=== PATIENT | male | born 1945 | race Caucasian/White ===

== ENCOUNTER 2021-08-30 08:04 | Outpatient (REF) | payer MEDICARE, SELFPAY ==
--- NOTE | ~2021-08-30 | XR_ITS ---
EXAMINATION: XR SHOULDER, LEFT CLINICAL INFORMATION: Left shoulder pain COMPARISON: None TECHNIQUE: AP external rotation, Grashey, scapular Y, and axillary views of the left shoulder. FINDINGS: The bones and soft tissues are normal. No fracture. Glenohumeral and acromioclavicular alignment is anatomic with normal joint space. No abnormal soft tissue calcifications. XR/XR shoulder LT min 2V IMPRESSION: Normal left shoulder.
[2021-08-30 08:21] LABS: MANUAL DIFF FLAG NO
[2021-08-30 09:00] LABS: Basophils Absolute Auto 0.1 X10*3/uL (0.0-0.2); Basophils Percent Auto 0.8 % (0-2); Eosinophils Absolute Auto 0.2 X10*3/uL (0.0-0.4); Eosinophils Percent Auto 2.7 % (0-4); Hemoglobin 14.5 g/dl (14.0-18.0); Imm Gran Abs Auto 0.04 X10*3/uL (0.00-0.03); Imm Gran Pct Auto 0.6 % (0.0-0.4); Lymphocytes Absolute Auto 1.4 X10*3/uL (1.2-4.9); Lymphocytes Percent Auto 21.5 % (20-40); Mean Corpuscular HGB Conc 33.7 g/dl (31.0-36.0); Mean Corpuscular Hemoglobin 30.5 pg (27.0-33.0); Mean Corpuscular Volume 90.3 fL (80-98); Mean Platelet Volume 9.8 fL (9.4-12.4); Monocytes Absolute Auto 0.6 X10*3/uL (0.1-1.2); Monocytes Percent Auto 9.5 % (2-11); Neutrophils Absolute Auto 4.2 X10*3/uL (2.0-8.3); Neutrophils Percent Auto 64.9 % (45-73); Platelet Count 199 X10*3/uL (160-400); Red Blood Count 4.76 X10*6/uL (4.60-5.80); White Blood Count 6.4 X10*3/uL (4.8-10.8)
[2021-08-30 09:27] LABS: Alanine Aminotransferase 20 U/L (0-40); Albumin Level 4.2 g/dL (3.5-5.0); Alkaline Phosphatase 92 U/L (39-117); Anion Gap 12 (12-20); Aspartate Amino Transferase 19 U/L (5-37); Bilirubin Total 0.9 mg/dL (0.0-1.0); Blood Urea Nitrogen 17 mg/dL (9-16); Calcium 9.3 mg/dL (8.4-10.2); Carbon Dioxide 28 mmol/L (22-29); Chloride 106 mmol/L (96-108); Cholesterol 191 mg/dL; Estimated Glomerular Filt Rate > 60; Glucose Random 90 mg/dL (60-115); HDL Cholesterol 52 mg/dL; LDL Cholesterol Calculated 127 mg/dl; Potassium 4.6 mmol/L (3.3-5.1); Sodium 141 mmol/L (135-145); Triglycerides 62 mg/dL
[2021-08-30 09:48] LABS: Free T4 (Free Thyroxine) 0.94 ng/dL (0.71-1.85); Thyroid Stimulating Hormone 2.38 uIU/mL (0.32-4.0)
[2021-08-30 09:50] LABS: Folate 12.6 ng/mL (> or = 4.0); Vitamin B12 234 pg/mL (200-900)
[2021-09-06 11:40] LABS: Testosterone, Total 714 ng/dL (250-1100)
== END 2021-08-30 08:05 | disposition home or self-care (01) ==
LOC: HO.XRAY 08:04
PROVIDERS: PCP Internal Medicine; Visit Provider Internal Medicine
DX: Z12.5 Encounter for screening for malignant neoplasm of prostate (principal); M25.512 Pain in left shoulder; E66.9 Obesity, unspecified; E78.00 Pure hypercholesterolemia, unspecified; N52.9 Male erectile dysfunction, unspecified
CPT/HCPCS: 36415; 73030; 80053; 80061; 82607; 82746; 84153; 84403; 84439; 84443; 85025

== ENCOUNTER → 2021-10-15 08:45 | Outpatient (BNVA) | payer MEDICARE, SELFPAY | PROVIDERS: PCP Internal Medicine; Visit Provider Physician Assistant | DX: M75.102 Unspecified rotator cuff tear or rupture of left shoulder, not specified as traumatic (principal) | CPT/HCPCS: 20610; 99202; J1040 ==

== ENCOUNTER 2022-04-16 12:44 | Outpatient (REF) | payer MEDICARE, SELFPAY ==
--- NOTE | ~2022-04-16 | XR_ITS ---
EXAMINATION: XR KNEE, LEFT CLINICAL INFORMATION: Pain COMPARISON: None TECHNIQUE: Four views of the left knee. FINDINGS: Bone alignment is normal. No fracture or dislocation is seen. There is mild joint space narrowing at the medial femoral tibial joint. There are small osteophytes at the patellofemoral joint. There is soft tissue swelling overlying the patella. There is a small joint effusion. XR/XR knee LT 4V IMPRESSION: Mild degenerative changes. Soft tissue swelling overlying the patella and small joint effusion.
== END 2022-04-16 12:45 | disposition home or self-care (01) ==
LOC: HO.XRAY 12:44
PROVIDERS: PCP Internal Medicine; Visit Provider Nurse Practitioner Family
DX: M25.562 Pain in left knee (principal)
CPT/HCPCS: 73564

== ENCOUNTER → 2022-05-08 10:00 | Outpatient (BNVA) | payer MEDICARE, SELFPAY | PROVIDERS: PCP Internal Medicine; Visit Provider Physician Assistant | DX: M17.12 Unilateral primary osteoarthritis, left knee (principal) | CPT/HCPCS: 20610; 99202; J1040 ==

== ENCOUNTER 2023-04-24 09:43 | Outpatient (REF) | payer MEDICARE, SELFPAY ==
[2023-04-24 10:52] LABS: Influenza A PCR NEGATIVE (Negative); Influenza B PCR NEGATIVE (Negative); Resp Syncy Virus RNA Qual PCR NEGATIVE (Negative); SARS COV2 PCR INHOUSE NEGATIVE (Negative)
== END 2023-04-24 09:44 | disposition home or self-care (01) ==
LOC: HO.LAB 09:43
PROVIDERS: Visit Provider Nurse Practitioner Family
DX: R05.9 Cough, unspecified (principal); Z20.822 Contact with and (suspected) exposure to COVID-19
CPT/HCPCS: 0241U

== ENCOUNTER 2023-08-24 13:13 | Outpatient (AMB) | payer MEDICARE, SELFPAY ==
[2023-08-24 13:23] VITALS: BP 132/80; PULSE 64; O2SAT 98; BMI 37.5
--- NOTE | 2023-08-24 13:23 | MHC.PC.OV ---
Vital Signs 08/24/23 13:23 Height 5 ft 9 in Weight 254 lb BMI 37.5 BP 132/80 Blood Pressure Location Lt brachial Position Sitting Pulse 64 Pulse Source Pulse Oximeter Temp Source Skin Pulse Oximetry (%) 98 Oxygen Delivery Method Room Air Intake Visit Reasons: REBA Allergies No Known Allergies Allergy (Verified 04/24/23 09:35) Medication List - Last Reconciled 08/24/23 by Albin Dougherty MD acetaminophen 500 - 1,000 mg (1 - 2 x 500 mg) PO Q6H PRN albuterol sulfate 90 mcg/actuation (Ventolin HFA) 2 puffs inhalation Q4-6H PRN ascorbic acid (vitamin C) mg PO [CPAP ] fluticasone propionate 50 mcg/actuation (Flonase Allergy Relief) 2 sprays intranasal DAILY 30 days multivitamin 1 cap PO DAILY sildenafil 100 mg PO DAILY PRN Tobacco use date assessed: 04/24/23 Fall risk assessment: No Falls in past year Last assessed Fall Risk: 08/24/23 Dental Screening Dental Screen Date: 08/24/23 Did you have a dental visit in the last 12 months?: Yes Did you have a dental problem in the last 6 months where you did not have access to dental care?: No Was dental information given to patient?: Patient has dentist HPI REBA HPI Details 78-year-old obese male with a history of obstructive sleep apnea lumbar degenerative disc disease hypercholesterolemia coming in for follow-up. Patient was last seen in 2020. Patient is up-to-date with colonoscopy. Seen by the nurse practitioner in April 2023 for cough patient was given Z-Rakan with inhaler. Review of the notes followed up in July 2022 by the Orthopedics regarding the left knee osteoarthritis had an injection done MRI a requested and repeat aspiration advised was given steroids. Mandy is having problem with erection. has needed prism on eye glasses PFSH Medical History Allergic rhinitis Cervical radiculopathy Erectile dysfunction Hypercholesterolemia Lumbar degenerative disc disease Obesity (BMI 30-39.9) Obstructive sleep apnea Osteoarthritis Sacroiliitis, not elsewhere classified Urinary retention Surgical History H/O arthroscopy of shoulder Family History Father Cancer Stroke Mother No problems noted. Son No problems noted. Son No problems noted. 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 Chandra Parr, Eneida Jenkins, Devin Montgomery and colleagues, with an educational arpan from [employer]. Physical exam (Primary Care) Vital Signs: Last Vital Signs Pulse 64 08/24/23 13:23 BP 132/80 08/24/23 13:23 Pulse Ox 98 08/24/23 13:23 Oxygen Delivery Method Room Air 08/24/23 13:23 BMI result Body Mass Index 37.5 Tobacco/Smoking Status: Tobacco use Status Tobacco use date assessed 04/24/23 08/24/23 13:29 Patient Tobacco Use Status Former Tobacco user 08/24/23 13:29 Tobacco use type Cigar 08/24/23 13:29 e-Cigarette/Vaping Use Never Used 08/24/23 13:29 Thrive Assessment: Date of Thrive Assessment Date Thrive assessed 04/16/22 08/24/23 13:29 Const General: alert; No acute distress Eyes Conjunctivae: conjunctivae normal Resp Auscultation: clear to auscultation bilaterally Cardio Rate: regular rate Rhythm: regular rhythm GI Inspection: Yes normal to inspection Extrem General: Yes normal to inspection and No edema Office Procedures Flu Questionnaire Does the patient have a severe egg allergy?: No Does the patient have severe life threatening allergies?: No Does the patient have a fever or illness today?: No Has the patient ever had Guillain-Winona Syndrome?: No Has the patient ever had any past reaction to a flu shot?: No Immunizations flu vacc [id number] 6mos up(PF) 60 mcg(15 mcgx4)/0.5 mL IM syringe Performing Provider: Albin Dougherty MD [facility] [place] Administered by: DONNA Vera on 08/24/23 13:34 Dose Route Admin Location Dispensed Lot Number Expiration Date NDC Demographer 0.5 mL IM Left Deltoid 0.5 mL [id number] 05/15/24 [id number] [employer] VIS Given Date VIS Provided VIS Publication Date 08/24/23 Single Vaccine 21 Eligibility Eligibility Date Funding Source Not VFC Eligible 08/24/23 Private Assessment and Plan Assessment & Plan (1) Obesity (BMI 30-39.9): Code(s): E66.9 - Obesity, unspecified Plan: Diet and exercise (2) Obstructive sleep apnea: Comment: Severe Code(s): G47.33 - Obstructive sleep apnea (adult) (pediatric) Plan: Continue with the CPAP more than 4 hours a night and benefits from this (3) Lumbar degenerative disc disease: Code(s): M51.36 - Other intervertebral disc degeneration, lumbar region Plan: Keep active (4) Hypercholesterolemia: Code(s): E78.00 - Pure hypercholesterolemia, unspecified Plan: Avoid fried foods, chicken skin, eggs, butter margarine, pastries and meat. Be it pork or beef they have a lot of cholesterol last blood work was good. (5) Osteoarthritis of left knee: Code(s): M17.12 - Unilateral primary osteoarthritis, left knee Plan: Patient follows up with orthopedics (6) Urinary incontinence: Code(s): R32 - Unspecified urinary incontinence Orders: Orders Influenza [id number] Immunization Today Z23 - Encounter for immunization Testosterone, Total Today N52.9 - Male erectile dysfunction, unspecified Comprehensive Met. Panel Today E78.00 - Pure hypercholesterolemia, unspecified Free T4 (Free Thyroxine) Today E78.00 - Pure hypercholesterolemia, unspecified Vitamin B12 and Folate Today E78.00 - Pure hypercholesterolemia, unspecified Complete Blood Count Auto Diff Today E78.00 - Pure hypercholesterolemia, unspecified Thyroid Stimulating Hormone Today E78.00 - Pure hypercholesterolemia, unspecified Lipid Panel Today E78.00 - Pure hypercholesterolemia, unspecified US bladder Today R32 - Unspecified urinary incontinence Medications: Refilled sildenafil administer 30 minutes to 4 hours before activity 100 mg PO DAILY PRN 14 tabs 3RF sexual activity N52.9 - Male erectile dysfunction, unspecified Coding Level of Care Code Est Pt Level 4 (46253) Diagnoses Obesity (BMI 30-39.9) E66.9 Obstructive sleep apnea G47.33 Lumbar degenerative disc disease M51.36 Hypercholesterolemia E78.00 Osteoarthritis of left knee M17.12 Urinary incontinence R32
== END 2023-08-24 14:08 | disposition home or self-care (01) ==
PROVIDERS: PCP Internal Medicine; Visit Provider Internal Medicine
DX: E78.00 Pure hypercholesterolemia, unspecified (principal); G47.33 Obstructive sleep apnea (adult) (pediatric); Z68.37 Body mass index [BMI] 37.0-37.9, adult; E66.9 Obesity, unspecified; Z23 Encounter for immunization; M51.36 Other intervertebral disc degeneration, lumbar region; M17.12 Unilateral primary osteoarthritis, left knee; R32 Unspecified urinary incontinence
CPT/HCPCS: 90471; 90686; 99214

== ENCOUNTER 2023-08-27 10:45 | Outpatient (REF) | payer MEDICARE, SELFPAY ==
[2023-08-27 11:01] LABS: MANUAL DIFF FLAG NO
[2023-08-27 11:54] LABS: Basophils Percent Auto 0.5 % (0-2); Eosinophils Absolute Auto 0.2 X10*3/uL (0.0-0.4); Eosinophils Percent Auto 2.7 % (0-4); Hematocrit 45.4 % (42.0-52.0); Hemoglobin 15.3 g/dl (14.0-18.0); Imm Gran Abs Auto 0.03 X10*3/uL (0.00-0.03); Imm Gran Pct Auto 0.5 % (0.0-0.4); Lymphocytes Absolute Auto 1.2 X10*3/uL (1.2-4.9); Lymphocytes Percent Auto 22.5 % (20-40); Mean Corpuscular HGB Conc 33.7 g/dl (31.0-36.0); Mean Corpuscular Hemoglobin 30.4 pg (27.0-33.0); Mean Corpuscular Volume 90.3 fL (80.0-98.0); Mean Platelet Volume 9.7 fL (9.4-12.4); Monocytes Absolute Auto 0.5 X10*3/uL (0.1-1.2); Monocytes Percent Auto 9.6 % (2-11); Neutrophils Absolute Auto 3.5 x10*3/uL (2.0-8.3); Neutrophils Percent Auto 64.2 % (45-73); Platelet Count 211 X10*3/uL (160-400); Red Blood Count 5.03 X10*6/uL (4.60-5.80); Red Cell Distribution Width 12.9 % (11.0-16.0); White Blood Count 5.5 X10*3/uL (4.8-10.8)
[2023-08-27 13:15] LABS: Alanine Aminotransferase 17 U/L (0-40); Albumin Level 4.5 g/dL (3.5-5.0); Alkaline Phosphatase 86 U/L (39-117); Anion Gap 15 (12-20); Aspartate Amino Transferase 20 U/L (5-37); Bilirubin Total 0.7 mg/dL (0.0-1.0); Blood Urea Nitrogen 21 mg/dL (9-16); Calcium 9.7 mg/dL (8.4-10.2); Carbon Dioxide 25 mmol/L (22-29); Chloride 106 mmol/L (96-108); Cholesterol 221 mg/dL (<200); Estimated Glomerular Filt Rate > 60; Glucose Random 93 mg/dL (60-115); HDL Cholesterol 54 mg/dL (>40); LDL Cholesterol Calculated 148 mg/dL (<100); Potassium 4.4 mmol/L (3.3-5.1); Sodium 142 mmol/L (135-145); Total Protein 7.6 g/dL (6.5-8.0); Triglycerides 97 mg/dL (<150)
[2023-08-27 13:23] LABS: Free T4 (Free Thyroxine) 0.96 ng/dL (0.71-1.85); Thyroid Stimulating Hormone 2.01 uIU/mL (0.32-4.0)
[2023-08-27 13:33] LABS: Folate 12.2 ng/mL (> or = 4.0); Vitamin B12 364 pg/mL (200-900)
[2023-08-31 14:29] LABS: Testosterone, Total 783 ng/dL (250-1100)
== END 2023-08-27 10:46 | disposition home or self-care (01) ==
LOC: HO.LAB 10:45
PROVIDERS: PCP Internal Medicine; Visit Provider Internal Medicine
DX: E78.00 Pure hypercholesterolemia, unspecified (principal); N52.9 Male erectile dysfunction, unspecified
CPT/HCPCS: 36415; 80053; 80061; 82607; 82746; 84403; 84439; 84443; 85025

== ENCOUNTER 2023-09-16 15:32 | Outpatient (AMB) | payer MEDICARE, SELFPAY ==
[2023-09-16 15:32] VITALS: BP 160/70; PULSE 91; TEMP 36.6; O2SAT 95; BMI 37.9
--- NOTE | 2023-09-16 15:32 | AM.OFFWIN_ITS ---
Intake Vital Signs 09/16/23 15:32 Height 5 ft 9 in Weight 257 lb BMI 37.9 BP 160/70 H Blood Pressure Location Lt brachial Position Sitting Pulse 91 Pulse Source Pulse Oximeter Temp 97.8 F Temp Source Temporal Artery Scan Pulse Oximetry (%) 95 Oxygen Delivery Method Room Air Intake Visit Reasons: EP, rash in groin and odor Intake Note: pt is here for c/o rash on groin and has fluid coming from rash 2 weeks Patient Tobacco Use Status: Former Tobacco user Allergies No Known Allergies Allergy (Verified 09/16/23 15:33) Do you need a note to return to daycare/school/sports/work: Yes HPI HPI Comments History of Present Illness Details 78 yo m that presents for a rash in the groin. The rash has been present for several weeks. It weeps and hernandez occasionally. Denies fever or chills. [facility] Medical History Allergic rhinitis Cervical radiculopathy Erectile dysfunction Hypercholesterolemia Lumbar degenerative disc disease Obesity (BMI 30-39.9) Obstructive sleep apnea Osteoarthritis Sacroiliitis, not elsewhere classified Urinary retention Surgical History H/O arthroscopy of shoulder Family History Father Cancer Stroke Mother No problems noted. Son No problems noted. Son No problems noted. 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) Current occupational status: retired (retired after 08/30/21) Current occupation: rt handed Cognitive needs: No Hearing needs: Yes (hearing aides) Vision needs: Yes (glasses) Review of Systems Skin/Breast Reports rash Physical Exam Vital Signs: Last Vital Signs Temp 97.8 F 09/16/23 15:32 Pulse 91 09/16/23 15:32 BP 160/70 H 09/16/23 15:32 Pulse Ox 95 09/16/23 15:32 Oxygen Delivery Method Room Air 09/16/23 15:32 BMI result Body Mass Index 37.9 Const General: cooperative, healthy appearing, no acute distress and alert Orientation/consciousness: patient oriented x3 Limitations: no limitations HEENT Head: Yes normal to inspection Ears: hearing grossly normal bilaterally General nose exam: Normal external nose present Resp Effort & Inspection: normal respiratory effort and able to speak in complete sentences Cardio Rate: regular rate Skin Other: Rash in the folds of the groin region. mild erythema and moisture presents. Neuro General: patient oriented x3 Extrem General: Yes normal to inspection Assessment & Plan Assessment & Plan (1) Intertrigo: Code(s): L30.4 - Erythema intertrigo Plan: signs and symptoms consistent with intertrigo. Given absence of systemic signs and no hx of DM lost suspicion for other acute pathology such as Luz's. Recommend good hydrigiene, drying powders and will prescribe an antifungal Discharge instructions, follow up and treatment are discussed with patient in my usual fashion. Alternatives in treatment are also discussed. The patient will return for worsening symptoms or as needed. Advised that any labs/imaging ordered will be followed up on and contact made if further treatment needed. Counseled that patient's condition may require further evaluation and/or treatment. Symptoms of concern for worsening disorder discussed in detail in my customary manner. Patient does verbalize understanding of the plan, there are no apparent barriers to communication. The patient is given the opportunity to ask questions and have them answered to his/her satisfaction Medications: New ketoconazole 2% 1 appl topical BID 60 grams 0RF Coding Level of Care Code Est Pt Level 3 (64733) Diagnoses Intertrigo L30.4
== END 2023-09-16 15:56 | disposition home or self-care (01) ==
PROVIDERS: PCP Internal Medicine; Visit Provider Physician Assistant
DX: L30.4 Erythema intertrigo (principal)
CPT/HCPCS: 99213

== ENCOUNTER 2023-10-06 10:47 | Outpatient (REF) | payer MEDICARE, SELFPAY ==
--- NOTE | ~2023-10-06 | US_ITS ---
EXAMINATION: US PELVIS LIMITED (BLADDER) CLINICAL INFORMATION: Unspecified urinary incontinence. Prevoid and postvoid. COMPARISON: 10/12/2019 TECHNIQUE: Real-time imaging of the bladder. FINDINGS: BLADDER: Well-distended. Mild irregularity and thickening of the bladder wall. Bilateral ureteral jets are demonstrated. Prevoid bladder volume is 367 mL. Postvoid bladder volume is 187 mL. ADDITIONAL FINDINGS: Prostate volume 53 mL. US/US bladder IMPRESSION: Enlarged prostate with large postvoid bladder volume.
== END 2023-10-06 10:48 | disposition home or self-care (01) ==
LOC: HO.US 10:47
PROVIDERS: PCP Internal Medicine; Visit Provider Internal Medicine
DX: R32 Unspecified urinary incontinence (principal)
CPT/HCPCS: 76857

== ENCOUNTER 2023-11-25 13:05 | Outpatient (AMB) | payer MEDICARE, SELFPAY ==
[2023-11-25 13:17] VITALS: BP 140/70; PULSE 75; O2SAT 97; BMI 36.9
--- NOTE | 2023-11-25 13:17 | A.OFFVIS_ITS ---
Intake Vital Signs 11/25/23 13:17 Height 5 ft 9 in Weight 250 lb BMI 36.9 BP 140/70 H Blood Pressure Location Lt brachial Position Sitting Pulse 75 Pulse Source Pulse Oximeter Pulse Oximetry (%) 97 Oxygen Delivery Method Room Air Intake Visit Reasons: AWV [id number] Allergies No Known Allergies Allergy (Verified 11/25/23 13:18) Medication List - Last Reconciled 11/25/23 by Albin Dougherty MD acetaminophen 500 - 1,000 mg (1 - 2 x 500 mg) PO Q6H PRN albuterol sulfate 90 mcg/actuation (Ventolin HFA) 2 puffs inhalation Q4-6H PRN ascorbic acid (vitamin C) mg PO [CPAP ] fluticasone propionate 50 mcg/actuation (Flonase Allergy Relief) 2 sprays intranasal DAILY 30 days ketoconazole 2% 1 appl topical BID multivitamin 1 cap PO DAILY sildenafil 100 mg PO DAILY PRN tamsulosin 0.4 mg PO BEDTIME HPI AWV G0438 HPI Details 78-year-old obese male with obstructive sleep apnea hypercholeste rolemia left knee osteoarthritis and lumbar degenerative disc disease coming in for annual well visit last seen in August 2023. Review of the notes in September 2023 had an ultrasound of the urinary bladder showing enlarged prostate 53 cc and large postvoid 367 to 187 PFSH Medical History Allergic rhinitis Cervical radiculopathy Erectile dysfunction Hypercholesterolemia Lumbar degenerative disc disease Obesity (BMI 30-39.9) Obstructive sleep apnea Osteoarthritis Sacroiliitis, not elsewhere classified Urinary retention Surgical History H/O arthroscopy of shoulder Family History Father Cancer Stroke Mother No problems noted. Son No problems noted. Son No problems noted. 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) Current occupational status: retired (retired after 08/30/21) Current occupation: rt handed Cognitive needs: No Hearing needs: Yes (hearing aides) Vision needs: Yes (glasses) Questionnaire Medicare Wellness Checkup [age] What gender do you identify with?: male During the past 4 weeks, how much have you been bothered by emotional problems such as feeling anxious, depressed, irritable, sad or downhearted, and blue?: not at all During the past 4 weeks, has your physical & emotional health limited your social activities with family, friends, neighbors, or groups?: not at all During the past 4 weeks, how much bodily pain have you generally had?: no pain During the past 4 weeks, was someone available to help you if you needed & wan vidhya help?: yes, as much as I wanted During the past 4 weeks, what was the hardest physical activity you could do for at least 2 minutes?: moderate Can you get to places out of walking distance without help? (For eg., can you travel alone on buses, taxis or drive your car?): Yes Can you go shopping for groceries or clothes without someone's help?: Yes Can you prepare your own meals?: Yes Can you do your housework without help?: Yes Because of any health problems, do you need the help of another person with your personal care needs such as eating, bathing, dressing or getting around the house?: No Can you handle your own money without help?: Yes During the past 4 weeks, how would you rate your health in general?: very good During the past 4 weeks how have things been going for you?: pretty well Are you having difficulties driving your car?: no Do you always fasten your seat belt when you are in a car?: yes, usually During past 4 weeks, have you been bothered by the following: never: Trouble eating well?, Teeth or denture problems?, Problems using the telephone? and Tiredness or fatigue?, seldom: Falling or dizzy when standing up and always: Sexual problems? Have you fallen 2 or more times in the past year?: No Are you afraid of falling?: No Are you a smoker?: no During the past 4 weeks, how many drinks of wine, beer, or other alcoholic beverages did you have?: 1 drink or less per week Do you exercise for about 20 minutes 3 or more times a week?: yes, some of the time Have you been given information to help with the following?: yes: Keeping track of your medications? and no: Hazards in your house that might hurt you? How often do you have trouble taking medicines the way you have been told to take them?: I do not have to take medicine How confident are you that you can control & manage most of your health problems?: very confident What is your race?: White PHQ-9 Over the last 2 weeks, how often have you been bothered by any of the following problems? 1. Little interest or pleasure in doing things: not at all 2. Feeling down, depressed, or hopeless: not at all 3. Trouble falling or staying asleep, or sleeping too much: not at all 4. Feeling tired or having little energy: not at all 5. Poor appetite or overeating: not at all 6. Feeling bad about yourself - or that you are a failure or have let yourself or your family down: not at all 7. Trouble concentrating on things, such as reading the newspaper or watching television: not at all 8. Moving or speaking so slowly that other people could have noticed. Or the opposite - being so fidgety or restless that you have been moving around a lot more than usual: not at all 9. Thoughts that you would be better off or of hurting yourself in some way: not at all Total score: 0 Depression Screening Interpretation: Negative Depression Screening Done: Yes Source: Developed by Drs. Chandra Parr, Eneida Jenkins, Devin Montgomery and colleagues, with an educational arpan from [employer]. Review of Systems Const Denies poor appetite and Denies weakness Eyes Denies no additional complaints ENT Reports Normal hearing present, Denies dizziness, Denies nasal congestion, Denies tinnitus and Denies sore throat Card Denies chest pain, Denies syncope, Denies rapid heart rate and Denies dyspnea Resp Denies cough and Denies dyspnea GI Denies change in stool character, Reports constipation, Denies diarrhea, Denies nausea and Denies vomiting Denies dysuria and Denies urinary frequency Neuro Reports Normal hearing present, Denies confusion, Denies dizziness, Denies syncope and Denies weakness Psych Denies confusion Physical Exam Vital Signs: Last Vital Signs Pulse 75 11/25/23 13:17 BP 140/70 H 11/25/23 13:17 Pulse Ox 97 11/25/23 13:17 Oxygen Delivery Method Room Air 11/25/23 13:17 BMI result Body Mass Index 36.9 Const General: No confusion Orientation/consciousness: No confusion HEENT Head: Yes normocephalic Ears: external ears normal and TM's normal bilaterally Face and sinus: Yes normal facial exam Mouth: moist mucous membranes Throat: Yes tonsils normal Eyes Conjunctivae: conjunctivae normal Pupils: Equal, round and reactive pupils present and Pupil accommodation reflex normal Direct Ophthalmoscopy: normal light reflex Neck Neck: No lymphadenopathy Thyroid: Thyroid normal Chest Chest palpation & inspection: normal inspection of the chest Resp Effort & Inspection: normal respiratory effort and no audible wheezes Auscultation: clear to auscultation bilaterally, no crackles, no wheezes and lung sounds not diminished Cardio Rate: regular rate Rhythm: regular rhythm Peripheral pulses: radial pulses present and dorsalis pedis present GI Other: guaiac negative prostate enlarged Palpation (GI): no masses Auscultation: normal bowel sounds and normoactive bowel sounds Rectal Exam - Male: Yes deferred Male General Exam: Yes normal external exam Skin General skin exam: no rashes or lesions noted Rashes: no rashes Neuro General: No confusion Cranial nerves: Yes Equal, round and reactive pupils present and Yes Normal hearing present Cognition (Neuro): normal cognition Gait exam (Neuro): Normal gait present Motor exam (neuro): 5/5 motor strength present throughout Deep tendon reflexes (DTR's): Right brachioradialis reflex intensity grade: 2+, Left brachioradialis reflex intensity grade: 2+, Right patellar reflex intensity grade: 2+ and Left patellar reflex intensity grade: 2+ Extrem General: No edema Assessment & Plan Assessment & Plan (1) Medicare annual wellness visit, subsequent: Code(s): Z00.00 - Encounter for general adult medical examination without abnormal findings Plan: continue with meds (2) Obesity (BMI 30-39.9): Code(s): E66.9 - Obesity, unspecified Plan: Diet and exercise (3) Obstructive sleep apnea: Comment: Severe Code(s): G47.33 - Obstructive sleep apnea (adult) (pediatric) Plan: Discussion about CPAP use and more than 4 hours a night and benefits from the (4) Lumbar degenerative disc disease: Code(s): M51.36 - Other intervertebral disc degeneration, lumbar region Plan: Keep active (5) Hypercholesterolemia: Code(s): E78.00 - Pure hypercholesterolemia, unspecified Plan: Avoid fried foods, chicken skin, eggs, butter margarine, pastries and meat. Be it pork or beef they have a lot of cholesterol LDL goal of less than 130 and triglyceride of less than 150 (6) Osteoarthritis of left knee: Code(s): M17.12 - Unilateral primary osteoarthritis, left knee Plan: Keep active lose the weight (7) Blood pressure elevated without history of HTN: Code(s): R03.0 - Elevated blood-pressure reading, without diagnosis of hypertension Plan: shaylee ]tor the BP Orders: Orders Lipid Panel 6 Months E78.00 - Pure hypercholesterolemia, unspecified Comprehensive Met. Panel 6 Months E78.00 - Pure hypercholesterolemia, unspecified Medications: Refilled tamsulosin 0.4 mg PO BEDTIME 30 caps 3RF R32 - Unspecified urinary incontinence Quality Reporting (2019) Depression/Bipolar (159/160/161/177) PHQ-9: Total score: 0 Coding Level of Care Code Medicare Subsequent (G0439) Diagnoses Medicare annual wellness visit, subsequent Z00.00 Obesity (BMI 30-39.9) E66.9 Obstructive sleep apnea G47.33 Lumbar degenerative disc disease M51.36 Hypercholesterolemia E78.00 Osteoarthritis of left knee M17.12 Blood pressure elevated without history of HTN R03.0
== END 2023-11-25 14:34 | disposition home or self-care (01) ==
PROVIDERS: PCP Internal Medicine; Visit Provider Internal Medicine
DX: Z00.00 Encounter for general adult medical examination without abnormal findings (principal); E66.9 Obesity, unspecified; G47.33 Obstructive sleep apnea (adult) (pediatric); Z68.36 Body mass index [BMI] 36.0-36.9, adult; M51.36 Other intervertebral disc degeneration, lumbar region; E78.00 Pure hypercholesterolemia, unspecified; M17.12 Unilateral primary osteoarthritis, left knee; R03.0 Elevated blood-pressure reading, without diagnosis of hypertension
CPT/HCPCS: G0439

== ENCOUNTER 2024-04-19 07:51 | Outpatient (REF) | payer MEDICARE, SELFPAY ==
[2024-04-19 08:07] LABS: MANUAL DIFF FLAG NO
[2024-04-19 08:53] LABS: Appearance Urine Clear; Color Urine Yellow; Glucose Urine UA Negative (Negative); Leukocyte Esterase Urine Small (1+) (Negative); Nitrite Urine Positive (Negative); PH 6.5 (5.0-9.0); UMIC TRIGGER UACC YES; Urine Blood Negative (Negative); Urine Ketones Negative (Negative); Urine Protein Negative (Neg-Trace)
[2024-04-19 08:56] LABS: Basophils Percent Auto 0.7 % (0-2); Eosinophils Absolute Auto 0.2 X10*3/uL (0.0-0.4); Eosinophils Percent Auto 2.9 % (0-4); Hemoglobin 13.3 g/dl (14.0-18.0); Imm Gran Abs Auto 0.03 X10*3/uL (0.00-0.03); Imm Gran Pct Auto 0.5 % (0.0-0.4); Lymphocytes Absolute Auto 1.4 X10*3/uL (1.2-4.9); Lymphocytes Percent Auto 24.5 % (20-40); Mean Corpuscular HGB Conc 34.1 g/dl (31.0-36.0); Mean Corpuscular Hemoglobin 31.1 pg (27.0-33.0); Mean Corpuscular Volume 91.3 fL (80.0-98.0); Mean Platelet Volume 9.8 fL (9.4-12.4); Monocytes Absolute Auto 0.6 X10*3/uL (0.1-1.2); Monocytes Percent Auto 9.9 % (2-11); Neutrophils Absolute Auto 3.4 x10*3/uL (2.0-8.3); Neutrophils Percent Auto 61.5 % (45-73); Platelet Count 167 X10*3/uL (160-400); Red Blood Count 4.27 X10*6/uL (4.60-5.80); Red Cell Distribution Width 13.7 % (11.0-16.0); White Blood Count 5.6 X10*3/uL (4.8-10.8)
[2024-04-19 09:07] LABS: Bacteria Urine 1+ (None Seen); Hyaline Casts Urine 0-2 /LPF (0-2); RBC Urine 0-2 /HPF (0-2); Squamous Epithelial Cell Urine 0-2 /HPF (0-2); UACC Culture Trigger YES
[2024-04-19 09:39] LABS: Alanine Aminotransferase 19 U/L (0-40); Albumin Level 4.1 g/dL (3.5-5.0); Alkaline Phosphatase 84 U/L (39-117); Anion Gap 16 (12-20); Aspartate Amino Transferase 25 U/L (5-37); Bilirubin Total 0.6 mg/dL (0.0-1.0); Blood Urea Nitrogen 20 mg/dL (9-16); Calcium 9.3 mg/dL (8.4-10.2); Carbon Dioxide 24 mmol/L (22-29); Chloride 107 mmol/L (96-108); Estimated Glomerular Filt Rate > 60; Glucose Random 90 mg/dL (60-115); Potassium 4.8 mmol/L (3.3-5.1); Sodium 142 mmol/L (135-145); Total Protein 6.9 g/dL (6.5-8.0)
[2024-04-19 09:59] LABS: Free T4 (Free Thyroxine) 0.98 ng/dL (0.71-1.85); Thyroid Stimulating Hormone 2.22 uIU/mL (0.32-4.0)
== END 2024-04-19 07:52 | disposition home or self-care (01) ==
LOC: HO.LAB 07:51
PROVIDERS: PCP Internal Medicine; Visit Provider Internal Medicine
DX: R42 Dizziness and giddiness (principal); R30.0 Dysuria
CPT/HCPCS: 36415; 80053; 81001; 84439; 84443; 85025; 87086; 87088; 87186

== ENCOUNTER 2024-04-20 08:35 | Outpatient (AMB) | payer MEDICARE, SELFPAY ==
[2024-04-20 08:42] VITALS: BP 152/90; PULSE 78; O2SAT 97; BMI 36.0
--- NOTE | 2024-04-20 08:42 | A.OFFPC_ITS ---
Vital Signs 04/20/24 08:42 Height 5 ft 9 in Weight 244 lb BMI 36.0 BP 152/90 H Blood Pressure Location Lt brachial Position Sitting Pulse 78 Pulse Source Pulse Oximeter Pulse Oximetry (%) 97 Oxygen Delivery Method Room Air Intake Visit Reasons: Dizziness Allergies No Known Allergies Allergy (Verified 04/20/24 08:44) Medication List - Last Reconciled 04/20/24 by Albin Dougherty MD acetaminophen 500 - 1,000 mg (1 - 2 x 500 mg) PO Q6H PRN albuterol sulfate 90 mcg/actuation (Ventolin HFA) 2 puffs inhalation Q4-6H PRN ascorbic acid (vitamin C) mg PO ciprofloxacin HCl (Cipro) 500 mg PO BID [CPAP ] fluticasone propionate 50 mcg/actuation (Flonase Allergy Relief) 2 sprays intranasal DAILY 30 days hydrochlorothiazide 12.5 mg PO DAILY ketoconazole 2% 1 appl topical BID meclizine 25 mg PO BID PRN multivitamin 1 cap PO DAILY sildenafil 100 mg PO DAILY PRN tamsulosin 0.4 mg PO BEDTIME Tobacco use date assessed: 04/20/24 Fall risk assessment: No Falls in past year Last assessed Fall Risk: 04/20/24 Dental Screening Dental Screen Date: 04/20/24 Did you have a dental visit in the last 12 months?: Yes Did you have a dental problem in the last 6 months where you did not have access to dental care?: No Was dental information given to patient?: Patient has dentist HPI Dizziness HPI Details 78-year-old obese male with a history of obstructive sleep apnea with lumbar degenerative disc disease hypercholesterolemia last seen in 12/05/2023 noted to have an elevated blood pressure at that time patient is here for follow-up. Patient was complaining of dizziness and blood workup was requested. Noted to have a mild anemia with a hemoglobin of 13.3 and positive for UTIrectal exam negative PFSH Medical History Allergic rhinitis Cervical radiculopathy Erectile dysfunction Hypercholesterolemia Lumbar degenerative disc disease Obesity (BMI 30-39.9) Obstructive sleep apnea Osteoarthritis Sacroiliitis, not elsewhere classified Urinary retention Surgical History H/O arthroscopy of shoulder Family History Father Cancer Stroke Mother No problems noted. Son No problems noted. Son No problems noted. Social History (Updated 11/25/23 @ 14:14 by Albin Dougherty MD) Housing: House Alcohol intake: current Alcohol intake frequency: does not drink Comment: 2 nights a week 1 drink Patient Tobacco Use Status: Former Tobacco user Tobacco use type: Cigar Years Smoked: stopped 2004, 1-2 cigars a week e-Cigarette/Vaping Use: Never Used Second Hand Smoke Exposure: No service: Yes ([employer]) Current occupational status: retired (retired after 08/30/21) Current occupation: rt handed Cognitive needs: No Hearing needs: Yes (hearing aides) Vision needs: Yes (glasses) Questionnaire PHQ-9 Over the last 2 weeks, how often have you been bothered by any of the following problems? 1. Little interest or pleasure in doing things: not at all 2. Feeling down, depressed, or hopeless: not at all 3. Trouble falling or staying asleep, or sleeping too much: not at all 4. Feeling tired or having little energy: not at all 5. Poor appetite or overeating: not at all 6. Feeling bad about yourself - or that you are a failure or have let yourself or your family down: not at all 7. Trouble concentrating on things, such as reading the newspaper or watching television: not at all 8. Moving or speaking so slowly that other people could have noticed. Or the opposite - being so fidgety or restless that you have been moving around a lot more than usual: not at all 9. Thoughts that you would be better off or of hurting yourself in some way: not at all Total score: 0 Depression Screening Interpretation: Negative Depression Screening Done: Yes Source: Developed by Drs. Chandra Parr, Eneida Jenkins, Devin Montgomery and colleagues, with an educational arpan from [employer]. Thrive Questionnaire Date Thrive assessed: 04/20/24 I am a: Patient What is your living situation today?: I have a steady place to live Within the past 12 months, did the food you bought not last and you didn't have the money to get more?: Never true Within the past 12 months, did you worry whether your food would run out before you got money to buy more?: Never true Do you have trouble paying for medicines?: No Do you have trouble getting transportation to medical appointments?: No Do you have trouble paying your heating and electricity bill?: No Do you have trouble taking care of your child, family member or friend?: No Do you have trouble with day-to-day activities such as bathing, preparing meals, shopping, managing finances, etc.?: No Are you currently unemployed and looking for a job?: No Are you interested in more education?: No Currently or been in a relationship where the following occur: no concerns reported THRIVE Score: 0 AUDIT C Alcohol Use Questionnaire (AUDIT-C) 1. How often do you have a drink containing alcohol?: Never 2. How many drinks containing alcohol do you have on a typical day when you are drinking?: 1 or 2 Total Score: 0 Score Reviewed/Action Taken: No STACY-7 AMB Questionnaire STACY-7 Date STACY - 7 assessed: 04/20/24 Feeling nervous, anxious, or on edge: 0 = Not at all Not being able to stop or control worryin = Not at all Worrying too much about different things: 0 = Not at all Trouble relaxin = Not at all Being so restless that it is hard to sit still: 0 = Not at all Becoming easily annoyed or irritable: 0 = Not at all Feeling afraid as if something awful might happen: 0 = Not at all Total STACY-7 score (0-4 normal; 5-9 mild; 10-14 moderate; 15-21 severe): 0 Source: Developed by Drs. Chandra Parr, Eneida Jenkins, Devin Montgomery and colleagues, with an educational arpan from [employer]. Physical exam (Primary Care) Vital Signs: Last Vital Signs Pulse 78 04/20/24 08:42 BP 152/90 H 04/20/24 08:42 Pulse Ox 97 04/20/24 08:42 Oxygen Delivery Method Room Air 04/20/24 08:42 BMI result Body Mass Index 36.0 Tobacco/Smoking Status: Tobacco use Status Tobacco use date assessed 04/20/24 04/20/24 08:45 Patient Tobacco Use Status Former Tobacco user 04/20/24 08:45 Tobacco use type Cigar 04/20/24 08:45 e-Cigarette/Vaping Use Never Used 04/20/24 08:45 PHQ-9: PHQ-9 Score PHQ-9: Total score 0 04/20/24 08:49 Depression Screening Interpretation: Negative Thrive Assessment: Date of Thrive Assessment Date Thrive assessed 04/20/24 04/20/24 08:49 Currently or been in a relationship where the following occur: no concerns reported Const General: alert; No acute distress Eyes Conjunctivae: conjunctivae normal Resp Auscultation: clear to auscultation bilaterally Cardio Rate: regular rate Rhythm: regular rhythm GI Other: guaiac negative Inspection: Yes normal to inspection Extrem General: Yes normal to inspection and No edema Assessment and Plan Assessment & Plan (1) Obesity (BMI 30-39.9): Code(s): E66.9 - Obesity, unspecified Plan: Diet and exercise (2) Anemia: Code(s): D64.9 - Anemia, unspecified Plan: rectal exam negative, will request repeat blood work (3) UTI (urinary tract infection): Code(s): N39.0 - Urinary tract infection, site not specified Plan: antibiotic sent and us bladder and renal requested (4) Obstructive sleep apnea: Comment: Severe Code(s): G47.33 - Obstructive sleep apnea (adult) (pediatric) Plan: continue to use the CPAP more that 4 hours a night and benefits from this (5) Colon cancer screening: Code(s): Z12.11 - Encounter for screening for malignant neoplasm of colon Plan: reminded about colon test (6) Hypertension: Code(s): I10 - Essential (primary) hypertension Plan: And has been checking the blood pressure and has been high. Will start on blood pressure medication Orders: Orders Complete Blood Count Auto Diff 1 Week D64.9 - Anemia, unspecified Vitamin B12 and Folate Today D64.9 - Anemia, unspecified US bladder Today N39.0 - Urinary tract infection, site not specified Ferritin Today D64.9 - Anemia, unspecified IRON PROFILE Today D64.9 - Anemia, unspecified Reticulocyte Count Today D64.9 - Anemia, unspecified US renal BI Today N39.0 - Urinary tract infection, site not specified Medications: New ciprofloxacin HCl (Cipro) 500 mg PO BID 14 tabs 0RF N39.0 - Urinary tract infection, site not specified hydrochlorothiazide 12.5 mg PO DAILY 30 tabs 0RF I10 - Essential (primary) hypertension Coding Level of Care Code Est Pt Level 4 (50636) Diagnoses Obesity (BMI 30-39.9) E66.9 Anemia D64.9 UTI (urinary tract infection) N39.0 Obstructive sleep apnea G47.33 Colon cancer screening Z12.11 Hypertension I10
== END 2024-04-20 09:11 | disposition home or self-care (01) ==
PROVIDERS: PCP Internal Medicine; Visit Provider Internal Medicine
DX: I10 Essential (primary) hypertension (principal); D64.9 Anemia, unspecified; E66.9 Obesity, unspecified; Z68.36 Body mass index [BMI] 36.0-36.9, adult; N39.0 Urinary tract infection, site not specified; G47.33 Obstructive sleep apnea (adult) (pediatric); Z12.11 Encounter for screening for malignant neoplasm of colon
CPT/HCPCS: 99214

== ENCOUNTER 2024-05-03 13:51 | Outpatient (REF) | payer MEDICARE, SELFPAY ==
--- NOTE | ~2024-05-03 | US_ITS ---
EXAMINATION: US RETROPERITONEAL COMPLETE (RENAL) CLINICAL INFORMATION: Urinary tract infection, site not specified. COMPARISON: Ultrasound bladder 10/06/2023. TECHNIQUE: Real-time imaging of the kidneys and bladder. FINDINGS: RIGHT KIDNEY: 10.7 x 5.8 x 5.2 cm (SAG x AP x TRV). The kidney is normal in size, contour, and echogenicity. Renal cortical thickness is normal. No renal calculi or hydronephrosis. 2.1 cm simple cyst in the lower pole. No imaging follow-up is recommended. LEFT KIDNEY: 12.2 x 5.3 x 4.8 cm (SAG x AP x TRV). The kidney is normal in size, contour, and echogenicity. Renal cortical thickness is normal. No calculi or focal parenchymal lesions. No hydronephrosis. BLADDER: The bladder is mildly distended and trabeculated. Bilateral ureteral jets are demonstrated. Prevoid bladder volume is 326 mL. Postvoid bladder volume is 43.5 mL. ADDITIONAL FINDINGS: Enlarged prostate measuring 37 mL. US/US retroperitoneal comp IMPRESSION: Enlarged prostate. Mildly distended and trabeculated urinary bladder with postvoid residual of 44 mL. No hydronephrosis.
== END 2024-05-03 13:52 | disposition home or self-care (01) ==
LOC: HO.HMGCX 13:51
PROVIDERS: PCP Internal Medicine; Visit Provider Internal Medicine
DX: N39.0 Urinary tract infection, site not specified (principal)
CPT/HCPCS: 76770

== ENCOUNTER 2024-09-08 13:44 | Outpatient (AMB) | payer MEDICARE, SELFPAY ==
--- NOTE | 2024-09-08 13:57 | AM.OFFVISNUR ---
Intake Visit Reasons: flu shot Allergies No Known Allergies Allergy (Verified 04/20/24 08:44) Office Procedures Flu Questionnaire Does the patient have a severe egg allergy?: No Does the patient have severe life threatening allergies?: No Does the patient have a fever or illness today?: No Has the patient ever had Guillain-[place] Syndrome?: No Has the patient ever had any past reaction to a flu shot?: No Assessment & Plan Assessment & Plan Orders: Orders Influenza [id number] Immunization Today Z23 - Encounter for immunization Medications: New Fluarix Triv [id number] (PF) (flu vacc [id number] 6mos up(PF)) 0.5 mL IM ONCE 0.5 mL 0RF NS Z23 - Encounter for immunization
== END 2024-09-08 13:58 | disposition home or self-care (01) ==
PROVIDERS: PCP Internal Medicine; Visit Provider Internal Medicine
DX: Z23 Encounter for immunization (principal)

== ENCOUNTER → 2024-09-08 13:44 | Outpatient (BNVA) | payer MEDICARE, SELFPAY | PROVIDERS: PCP Internal Medicine; Visit Provider Internal Medicine | DX: Z23 Encounter for immunization (principal) | CPT/HCPCS: 90471; 90656 ==

== ENCOUNTER 2024-09-26 15:51 | Outpatient (AMB) | payer MEDICARE, SELFPAY ==
--- NOTE | 2024-09-26 15:57 | A.OFFPC_ITS ---
Vital Signs 09/26/24 16:00 Height 5 ft 9 in Weight 243 lb 4 oz BMI 35.9 BP 144/76 H Blood Pressure Location Lt brachial Position Sitting Pulse 89 Pulse Source Pulse Oximeter Pulse Oximetry (%) 96 Oxygen Delivery Method Room Air Intake Visit Reasons: Follow Up Allergies No Known Allergies Allergy (Verified 09/26/24 16:02) Tobacco use date assessed: 09/26/24 Fall risk assessment: No Falls in past year Last assessed Fall Risk: 09/26/24 Dental Screening Dental Screen Date: 09/26/24 Did you have a dental visit in the last 12 months?: Yes Did you have a dental problem in the last 6 months where you did not have access to dental care?: No Was dental information given to patient?: Patient has dentist HPI Follow Up HPI Details 79-year-old obese male with obstructive sleep apnea hypertension anemia coming in for follow-up. Last seen in 04/20/2024.. bp AT HOME 135/76 ON AVERAGE. COMPLAINS OF STILL getting dizzy loosing [facility] Medical History (Updated 09/26/24 @ 16:34 by Albin Dougherty MD) Left knee pain Cough Blood pressure elevated without history of HTN Dizziness Allergic rhinitis Hypercholesterolemia Lumbar degenerative disc disease Erectile dysfunction Cervical radiculopathy Osteoarthritis Sacroiliitis, not elsewhere classified Urinary retention Obstructive sleep apnea Obesity (BMI 30-39.9) Surgical History H/O arthroscopy of shoulder Family History Father Cancer Stroke Mother No problems noted. Son No problems noted. Son No problems noted. Social History Housing: House Alcohol intake: current Alcohol intake frequency: does not drink Comment: 2 nights a week 1 drink Patient Tobacco Use Status: Former Tobacco user Tobacco use type: Cigar Years Smoked: stopped 2004, 1-2 cigars a week e-Cigarette/Vaping Use: Never Used Second Hand Smoke Exposure: No service: Yes ([employer]) Current occupational status: retired (retired after 08/30/21) Current occupation: rt handed Cognitive needs: No Hearing needs: Yes (hearing aides) Vision needs: Yes (glasses) Questionnaire PHQ-9 Over the last 2 weeks, how often have you been bothered by any of the following problems? 1. Little interest or pleasure in doing things: not at all 2. Feeling down, depressed, or hopeless: not at all 3. Trouble falling or staying asleep, or sleeping too much: not at all 4. Feeling tired or having little energy: not at all 5. Poor appetite or overeating: not at all 6. Feeling bad about yourself - or that you are a failure or have let yourself or your family down: not at all 7. Trouble concentrating on things, such as reading the newspaper or watching television: not at all 8. Moving or speaking so slowly that other people could have noticed. Or the opposite - being so fidgety or restless that you have been moving around a lot more than usual: not at all 9. Thoughts that you would be better off or of hurting yourself in some way: not at all Total score: 0 Depression Screening Interpretation: Negative Depression Screening Done: Yes Source: Developed by Drs. Chandra Parr, Eneida Jenkins, Devin Montgomery and colleagues, with an educational arpan from [employer]. Thrive Questionnaire Date Thrive assessed: 09/26/24 I am a: Patient What is your living situation today?: I have a steady place to live Within the past 12 months, did the food you bought not last and you didn't have the money to get more?: Never true Within the past 12 months, did you worry whether your food would run out before you got money to buy more?: Never true Do you have trouble paying for medicines?: No Do you have trouble getting transportation to medical appointments?: No Do you have trouble paying your heating and electricity bill?: No Do you have trouble taking care of your child, family member or friend?: No Do you have trouble with day-to-day activities such as bathing, preparing meals, shopping, managing finances, etc.?: No Are you currently unemployed and looking for a job?: No Are you interested in more education?: No THRIVE Score: 0 AUDIT C Alcohol Use Questionnaire (AUDIT-C) 1. How often do you have a drink containing alcohol?: 2-4 times a month 2. How many drinks containing alcohol do you have on a typical day when you are drinking?: 1 or 2 3. How often do you have six or more drinks on one occasion?: Never Total Score: 2 Score Reviewed/Action Taken: No STACY-7 AMB Questionnaire STACY-7 Date STACY - 7 assessed: 09/26/24 Feeling nervous, anxious, or on edge: 0 = Not at all Not being able to stop or control worryin = Not at all Worrying too much about different things: 0 = Not at all Trouble relaxin = Not at all Being so restless that it is hard to sit still: 0 = Not at all Becoming easily annoyed or irritable: 0 = Not at all Feeling afraid as if something awful might happen: 0 = Not at all Total STACY-7 score (0-4 normal; 5-9 mild; 10-14 moderate; 15-21 severe): 0 Source: Developed by Drs. Chandra Parr, Eneida Jenkins, Devin Montgomery and colleagues, with an educational arpan from [employer]. Physical exam (Primary Care) Vital Signs: Last Vital Signs Pulse 89 09/26/24 16:00 BP 144/76 H 09/26/24 16:00 Pulse Ox 96 09/26/24 16:00 Oxygen Delivery Method Room Air 09/26/24 16:00 BMI result Body Mass Index 35.9 Tobacco/Smoking Status: Tobacco use Status Tobacco use date assessed 09/26/24 09/26/24 16:04 Patient Tobacco Use Status Former Tobacco user 09/26/24 15:57 Tobacco use type Cigar 09/26/24 15:57 e-Cigarette/Vaping Use Never Used 09/26/24 15:57 PHQ-9: PHQ-9 Score PHQ-9: Total score 0 09/26/24 16:31 Depression Screening Interpretation: Negative Thrive Assessment: Date of Thrive Assessment Date Thrive assessed 09/26/24 09/26/24 16:04 Const General: alert; No acute distress Eyes Conjunctivae: conjunctivae normal Resp Auscultation: clear to auscultation bilaterally Cardio Rate: regular rate Rhythm: regular rhythm GI Inspection: Yes normal to inspection Extrem General: Yes normal to inspection and No edema Coding Level of Care Code Est Pt Level 4 (70444) Diagnoses Primary hypertension I10 Hypertension type: primary hypertension Anemia, unspecified type D64.9 Anemia type: unspecified type Hypercholesterolemia E78.00 Obstructive sleep apnea G47.33 Obesity (BMI 30-39.9) E66.9 Benign paroxysmal positional vertigo due to bilateral vestibular disorder H81.13 Assessment & Plan Assessment & Plan (1) Hypertension: Code(s): I10 - Essential (primary) hypertension Category: Medical Qualifiers: Hypertension type: primary hypertension Qualified Code(s): I10 - Essential (primary) hypertension Plan: Continue with hydrochlorothiazide 12.5 mg once a day (2) Anemia: Code(s): D64.9 - Anemia, unspecified Category: Medical Qualifiers: Anemia type: unspecified type Qualified Code(s): D64.9 - Anemia, unspecified Plan: Advised to get this monitored (3) Hypercholesterolemia: Code(s): E78.00 - Pure hypercholesterolemia, unspecified Category: Medical Plan: Avoid fried foods, chicken skin, eggs, butter margarine, pastries and meat. Be it pork or beef they have a lot of cholesterol LDL goal of less than 130 and triglyceride of less than 150 (4) Obstructive sleep apnea: Comment: Severe Code(s): G47.33 - Obstructive sleep apnea (adult) (pediatric) Category: Medical Plan: Continue to use the CPAP more than 4 hours a night and benefits from this. (5) Obesity (BMI 30-39.9): Code(s): E66.9 - Obesity, unspecified Category: Medical Plan: Diet and exercise (6) Benign paroxysmal positional vertigo due to bilateral vestibular disorder: Code(s): H81.13 - Benign paroxysmal vertigo, bilateral Category: Medical Plan: Referral to physical therapy done Orders: Orders PT Evaluation and Treatment Today H81.13 - Benign paroxysmal vertigo, bilateral Thyroid Stimulating Hormone Today H81.13 - Benign paroxysmal vertigo, bilateral Free T4 (Free Thyroxine) Today H81.13 - Benign paroxysmal vertigo, bilateral
[2024-09-26 16:00] VITALS: BP 144/76; PULSE 89; O2SAT 96; BMI 35.9
== END 2024-09-26 16:43 | disposition home or self-care (01) ==
PROVIDERS: PCP Internal Medicine; Visit Provider Internal Medicine
DX: I10 Essential (primary) hypertension (principal); D64.9 Anemia, unspecified; E66.9 Obesity, unspecified; Z68.35 Body mass index [BMI] 35.0-35.9, adult; E78.00 Pure hypercholesterolemia, unspecified; G47.33 Obstructive sleep apnea (adult) (pediatric); H81.13 Benign paroxysmal vertigo, bilateral

== ENCOUNTER → 2024-09-26 15:51 | Outpatient (BNVA) | payer MEDICARE, SELFPAY | PROVIDERS: PCP Internal Medicine; Visit Provider Internal Medicine | DX: I10 Essential (primary) hypertension (principal); D64.9 Anemia, unspecified; E78.00 Pure hypercholesterolemia, unspecified; G47.33 Obstructive sleep apnea (adult) (pediatric); E66.9 Obesity, unspecified; H81.13 Benign paroxysmal vertigo, bilateral | CPT/HCPCS: 96127; 99212 ==

== ENCOUNTER 2024-10-20 14:00 | Outpatient (RCR) | payer MEDICARE, SELFPAY ==
--- NOTE | 2024-12-16 14:12 | MHC.PT.DC ---
[facility] [place] [facility] [place] [facility] [place] [facility] [address] Annalise Stoner [address] [phone] F: [phone] F: [phone] F: [phone] F: [phone] Physical Therapy Discharge Report Diagnosis: VERTIGO (KP) Date of Surgery: Date of Evaluation: 10/12/24 Date of Discharge: 12/16/24 Treatments to Date: 3 Cancellations to Date: 1 No Shows to Date: 0 Discharge Status: Patient Elected to Stop Discharge Summary: phoned to cancel last scheduled visit. No additional info was provided and as we have not heard from him in over 30 days we will DC the current chart and perform new assessment if symptoms return Electronically signed by: Malena Payan PT DPT Please sign and return to therapist. Thank you for your referral.
== END 2024-12-16 14:12 | disposition home or self-care (01) ==
LOC: HO.PT 14:00
PROVIDERS: PCP Internal Medicine; Visit Provider Internal Medicine
DX: H81.13 Benign paroxysmal vertigo, bilateral (principal)
CPT/HCPCS: 97112; 97161; 97535

== ENCOUNTER 2024-11-25 08:08 | Outpatient (REF) | payer MEDICARE, SELFPAY ==
--- OUTSIDE RECORDS SUMMARY | 2024-11-25 08:12 | XMS_ITS | Continuity of Care Document ---
Author Organization [facility] Address [address] [place] [address] Phone Care Team Providers Care It Application Support Analyst Name Role Phone Paramjit Winkler MD Unavailable Unavailable Advance Directives Directive Yes / No Effective Date File Name No Information Encounters Encounter Description Practice Location Reason(s) For Visit Diagnoses Date Provider Providers Copied on Encounter [facility], [address], [place], [id number], tel:[phone] No Information Cathi Yusuf. [address], [place], [id number], . tel:[phone] Family History Family Member Type Diagnosis Age At Onset No Information Payers Payer name Insurance type Covered green party ID Authoriza tion(s) No Information Social History Type Description Quantity Date Captured Comments Sex Male Smoking Status No Information Chief Complaint And Reason For Visit No Information Reason For Referral Reason For Referral No Information History Of Present Illness Encounter Date Complaint History Of Prese nt Illness No Information Functional Status Date Functional Assessmen t No Information Instructions Date Instruction Additional Infor mation No Information Assessments Type Assessment Date No Information Patient Care Teams Name Effective Dates (start - stop) Status Members No Information
[2024-11-25 08:24] LABS: MANUAL DIFF FLAG NO
[2024-11-25 08:35] LABS: Basophils Absolute Auto 0.1 X10*3/uL (0.0-0.2); Basophils Percent Auto 0.5 % (0-2); Eosinophils Absolute Auto 0.2 X10*3/uL (0.0-0.4); Eosinophils Percent Auto 1.8 % (0-4); Hematocrit 41.5 % (42.0-52.0); Hemoglobin 13.7 g/dl (14.0-18.0); Imm Gran Abs Auto 0.06 X10*3/uL (0.00-0.03); Imm Gran Pct Auto 0.7 % (0.0-0.4); Immature Retic Fraction 10.9 % (2.3-13.4); Lymphocytes Absolute Auto 1.3 X10*3/uL (1.2-4.9); Lymphocytes Percent Auto 13.9 % (20-40); Mean Corpuscular Hemoglobin 30.4 pg (27.0-33.0); Mean Corpuscular Volume 92.2 fL (80.0-98.0); Mean Platelet Volume 9.5 fL (9.4-12.4); Monocytes Absolute Auto 0.9 X10*3/uL (0.1-1.2); Monocytes Percent Auto 9.4 % (2-11); Neutrophils Absolute Auto 6.7 x10*3/uL (2.0-8.3); Neutrophils Percent Auto 73.7 % (45-73); Platelet Count 200 X10*3/uL (160-400); Red Cell Distribution Width 13.2 % (11.0-16.0); Retic HGB Equivalent 33.5 pg (30.0-35.0); Reticulocyte Percent 1.3 % (0.5-1.8); Reticulocytes Absolute 0.059 X10*6/uL (0.026-0.095); White Blood Count 9.1 X10*3/uL (4.8-10.8)
[2024-11-25 09:35] LABS: Folate 11.6 ng/mL (> or = 4.0); Vitamin B12 339 pg/mL (200-900)
[2024-11-25 09:37] LABS: Alanine Aminotransferase 18 U/L (0-40); Alkaline Phosphatase 101 U/L (39-117); Anion Gap 10 (12-20); Aspartate Amino Transferase 24 U/L (5-37); Bilirubin Total 0.7 mg/dL (0.0-1.0); Blood Urea Nitrogen 16 mg/dL (9-16); Calcium 9.1 mg/dL (8.4-10.2); Carbon Dioxide 27 mmol/L (22-29); Chloride 112 mmol/L (96-108); Cholesterol 176 mg/dL (<200); Estimated Glomerular Filt Rate 56; Glucose Random 96 mg/dL (60-115); HDL Cholesterol 51 mg/dL (>40); Iron 60 mcg/dL (45-160); LDL Cholesterol Calculated 112 mg/dL (<100); Percent Iron Saturation 25 % (15-50); Potassium 4.4 mmol/L (3.3-5.1); Sodium 145 mmol/L (135-145); Total Iron Binding Capacity 244 mcg/dL (228-428); Total Protein 7.1 g/dL (6.5-8.0); Triglycerides 66 mg/dL (<150); Unsaturated Iron Binding 184 ug/dL
[2024-11-25 09:48] LABS: Appearance Urine Clear; Color Urine Dark Yellow; Glucose Urine UA Negative (Negative); Leukocyte Esterase Urine Small (1+) (Negative); Nitrite Urine Positive (Negative); PH 5.5 (5.0-9.0); Specific Gravity - Urine 1.025 (1.005-1.025); UMIC TRIGGER UACC YES; Urine Blood Negative (Negative); Urine Ketones Negative (Negative); Urine Protein Negative (Neg-Trace)
[2024-11-25 09:53] LABS: Ferritin 252 ng/mL (20-250); Free T4 (Free Thyroxine) 1.04 ng/dL (0.71-1.85); Thyroid Stimulating Hormone 1.95 uIU/mL (0.32-4.0)
[2024-11-25 11:00] LABS: Bacteria Urine None Seen (None Seen); Hyaline Casts Urine 0-2 /LPF (0-2); RBC Urine 0-2 /HPF (0-2); Squamous Epithelial Cell Urine 0-2 /HPF (0-2); UACC Culture Trigger YES
== END 2024-11-25 08:09 | disposition home or self-care (01) ==
LOC: HO.LAB 08:08
PROVIDERS: PCP Internal Medicine; Visit Provider Internal Medicine
DX: D64.9 Anemia, unspecified (principal); H81.13 Benign paroxysmal vertigo, bilateral; E78.00 Pure hypercholesterolemia, unspecified; R30.0 Dysuria
CPT/HCPCS: 36415; 80053; 80061; 81001; 82607; 82728; 82746; 83540; 84439; 84443; 85025; 85045; 87086

== ENCOUNTER 2024-11-28 13:29 | Outpatient (AMB) | payer MEDICARE, SELFPAY ==
[2024-11-28 13:31] VITALS: BP 142/86; PULSE 78; O2SAT 96; BMI 35.6
--- NOTE | 2024-11-28 13:31 | AM.OFFVISMDC ---
Intake Vital Signs 11/28/24 13:31 Height 5 ft 9 in Weight 241 lb 2 oz BMI 35.6 BP 142/86 H Blood Pressure Location Lt brachial Position Sitting Pulse 78 Pulse Source Pulse Oximeter Pulse Oximetry (%) 96 Oxygen Delivery Method Room Air Intake Visit Reasons: [facility] G0439 Allergies No Known Allergies Allergy (Verified 11/28/24 13:34) Medication List - Last Reconciled 11/28/24 by Albin Dougherty MD acetaminophen 500 - 1,000 mg (1 - 2 x 500 mg) PO Q6H PRN ascorbic acid (vitamin C) mg PO ciprofloxacin HCl 500 mg PO BID [CPAP ] fluticasone propionate 50 mcg/actuation (Flonase Allergy Relief) 2 sprays intranasal DAILY 30 days hydrochlorothiazide 12.5 mg PO DAILY ketoconazole 2% 1 appl topical BID multivitamin 1 cap PO DAILY sildenafil 100 mg PO DAILY PRN HPI [facility] G0439 HPI Details ophthalmology is [facility] The patient is a 79-year-old male presenting with vertigo, cough, and symptoms related to hypertension and insomnia. The dizziness began approximately two to three months ago and is described as vertiginous, causing instability, particularly when turning quickly. Although physical therapy was initiated, the exercises provided minimal relief, and the condition persists without syncope. The patient has not seen an ENT specialist for this issue. The cough has been present for a little over two weeks, worsening with congestion and postnasal drip symptoms. Dyll-lmm-izbxjny medications have been utilized, including cough syrups, which have provided insufficient relief. The patient's history of blood pressure has been reasonably controlled at home, typically reading 135 to 138 mmHg, though it can increase to 140 mmHg or slightly higher post-caffeine consumption. He mentioned insomnia characterized by difficulty returning to sleep after nocturnal awakenings. The patient reports occasional use of Advil PM, raising concerns about its impact on renal function and potential risk of falls due to sedation. Recent blood work indicated mild anemia and slightly increased serum creatinine levels, a mild decrease in eGFR, though still considered normal range. A symptomatic urinary tract infection was confirmed through positive findings in a recent urinalysis; this poses a concern due to his known conditions of BPH. - Influenza vaccination received. - Shingles vaccination updated. - RSV vaccination completed. - Patient instructed to increase daily fluid intake to promote kidney health. - Recommended exploring alternative sleep aids over Advil PM due to renal impact. - Employment: Retired at age 76; occasionally consults for projects. - Alcohol: Consumes 2-3 glasses of wine per week. - Exercise: Does not engage in regular exercise beyond physical therapy exercises. - Functional Status: Experiences dizziness which affects pace and safety in movement. - Sleep: Experiences insomnia, impacting quality of life. - Cardiovascular: Denies chest pain. - Respiratory: Denies shortness of breath; Reports cough persisting for over two weeks with postnasal drip. - Neurological: Reports dizziness without syncope. - Gastrointestinal: Denies abnormalities in bowel movements. - Genitourinary: Reports nocturia varies with fluid intake. - Musculoskeletal: Denies joint pain or swelling. - General: Denies fever or chills. - Hematologic: Reports mild anemia from recent lab results. - ENT: Reports no changes in hearing, does not use hearing aids. - Labs: Mild anemia (Hemoglobin 13.7); Serum creatinine 1.24; eGFR 56. - Urinalysis: Positive for infection. [facility] Medical History Left knee pain Cough Blood pressure elevated without history of HTN Dizziness Allergic rhinitis Hypercholesterolemia Lumbar degenerative disc disease Erectile dysfunction Cervical radiculopathy Osteoarthritis Sacroiliitis, not elsewhere classified Urinary retention Obstructive sleep apnea Obesity (BMI 30-39.9) Surgical History H/O arthroscopy of shoulder Family History Father Cancer Stroke Mother No problems noted. Son No problems noted. Son No problems noted. Social History Housing: House Alcohol intake: current Alcohol intake frequency: does not drink Comment: 2 nights a week 1 drink Patient Tobacco Use Status: Former Tobacco user Tobacco use type: Cigar Years Smoked: stopped 2004, 1-2 cigars a week e-Cigarette/Vaping Use: Never Used Second Hand Smoke Exposure: No service: Yes ([employer]) Current occupational status: retired (retired after 08/30/21) Current occupation: rt handed Cognitive needs: No Hearing needs: Yes (hearing aides) Vision needs: Yes (glasses) Questionnaire Medicare Wellness Checkup [age] What gender do you identify with?: male During the past 4 weeks, how much have you been bothered by emotional problems such as feeling anxious, depressed, irritable, sad or downhearted, and blue?: not at all During the past 4 weeks, has your physical & emotional health limited your social activities with family, friends, neighbors, or groups?: not at all During the past 4 weeks, how much bodily pain have you generally had?: mild pain During the past 4 weeks, was someone available to help you if you needed & wanted help?: yes, as much as I wanted During the past 4 weeks, what was the hardest physical activity you could do for at least 2 minutes?: heavy Can you get to places out of walking distance without help? (For eg., can you travel alone on buses, taxis or drive your car?): Yes Can you go shopping for groceries or clothes without someone's help?: Yes Can you prepare your own meals?: Yes Can you do your housework without help?: Yes Because of any health problems, do you need the help of another person with your personal care needs such as eating, bathing, dressing or getting around the house?: No Can you handle your own money without help?: Yes During the past 4 weeks, how would you rate your health in general?: very good During the past 4 weeks how have things been going for you?: very well; could hardly better Are you having difficulties driving your car?: no Do you always fasten your seat belt when you are in a car?: yes, usually During past 4 weeks, have you been bothered by the following: never: Falling or dizzy when standing up, Sexual problems?, Trouble eating well?, Teeth or denture problems?, Problems using the telephone? and Tiredness or fatigue? Have you fallen 2 or more times in the past year?: No Are you afraid of falling?: No Are you a smoker?: no During the past 4 weeks, how many drinks of wine, beer, or other alcoholic beverages did you have?: 2-5 drinks per week Do you exercise for about 20 minutes 3 or more times a week?: yes, some of the time Have you been given information to help with the following?: no: Hazards in your house that might hurt you? and no: Keeping track of your medications? How often do you have trouble taking medicines the way you have been told to take them?: I always take medicine as prescribed How confident are you that you can control & manage most of your health problems?: very confident What is your race?: White PHQ-9 Over the last 2 weeks, how often have you been bothered by any of the following problems? 1. Little interest or pleasure in doing things: not at all 2. Feeling down, depressed, or hopeless: not at all 3. Trouble falling or staying asleep, or sleeping too much: more than half the days 4. Feeling tired or having little energy: not at all 5. Poor appetite or overeating: not at all 6. Feeling bad about yourself - or that you are a failure or have let yourself or your family down: not at all 7. Trouble concentrating on things, such as reading the newspaper or watching television: not at all 8. Moving or speaking so slowly that other people could have noticed. Or the opposite - being so fidgety or restless that you have been moving around a lot more than usual: not at all 9. Thoughts that you would be better off or of hurting yourself in some way: not at all Total score: 2 Depression Screening Interpretation: Negative Depression Screening Done: Yes 00042 - PHQ-9 Billing: Yes Source: Developed by Drs. Chandra Parr, Eneida Jenkins, Devin Montgomery and colleagues, with an educational arpan from [employer]. Review of Systems Const Denies poor appetite and Denies weakness Eyes Denies no additional complaints ENT Reports Normal hearing present, Denies dizziness, Denies nasal congestion, Denies tinnitus and Denies sore throat Card Denies chest pain, Denies syncope, Denies rapid heart rate and Denies dyspnea Resp Denies cough and Denies dyspnea GI Denies change in stool character, Reports constipation, Denies diarrhea, Denies nausea and Denies vomiting Denies dysuria and Denies urinary frequency Neuro Reports Normal hearing present, Denies confusion, Denies dizziness, Denies syncope and Denies weakness Psych Denies confusion Physical Exam Vital Signs: Last Vital Signs Pulse 78 11/28/24 13:31 BP 142/86 H 11/28/24 13:31 Pulse Ox 96 11/28/24 13:31 Oxygen Delivery Method Room Air 11/28/24 13:31 BMI result Body Mass Index 35.6 Const General: No confusion Orientation/consciousness: No confusion HEENT Head: Yes normocephalic Ears: external ears normal and TM's normal bilaterally Face and sinus: Yes normal facial exam Mouth: moist mucous membranes Throat: Yes tonsils normal Eyes Conjunctivae: conjunctivae normal Pupils: Equal, round and reactive pupils present and Pupil accommodation reflex normal Direct Ophthalmoscopy: normal light reflex Neck Neck: No lymphadenopathy Thyroid: Thyroid normal Chest Chest palpation & inspection: normal inspection of the chest Resp Effort & Inspection: normal respiratory effort and no audible wheezes Auscultation: clear to auscultation bilaterally, no crackles, no wheezes and lung sounds not diminished Cardio Rate: regular rate Rhythm: regular rhythm Peripheral pulses: radial pulses present and dorsalis pedis present GI Palpation (GI): no masses Auscultation: normal bowel sounds and normoactive bowel sounds Rectal Exam - Male: Yes deferred Skin General skin exam: no rashes or lesions noted Rashes: no rashes Neuro General: No confusion Cranial nerves: Yes Equal, round and reactive pupils present and Yes Normal hearing present Cognition (Neuro): normal cognition Gait exam (Neuro): Normal gait present Motor exam (neuro): 5/5 motor strength present throughout Deep tendon reflexes (DTR's): Right brachioradialis reflex intensity grade: 2+, Left brachioradialis reflex intensity grade: 2+, Right patellar reflex intensity grade: 2+ and Left patellar reflex intensity grade: 2+ Extrem General: No edema Assessment & Plan Assessment & Plan (1) Medicare annual wellness visit, subsequent: Code(s): Z00.00 - Encounter for general adult medical examination without abnormal findings (2) Hypercholesterolemia: Code(s): E78.00 - Pure hypercholesterolemia, unspecified (3) Obstructive sleep apnea: Comment: Severe Code(s): G47.33 - Obstructive sleep apnea (adult) (pediatric) (4) Obesity (BMI 30-39.9): Code(s): E66.9 - Obesity, unspecified (5) UTI (urinary tract infection): Code(s): N39.0 - Urinary tract infection, site not specified (6) Hypertension: Code(s): I10 - Essential (primary) hypertension Qualifiers: Hypertension type: primary hypertension Qualified Code(s): I10 - Essential (primary) hypertension (7) Sinus congestion: Code(s): R09.81 - Nasal congestion Plan - Initiate referral to ENT for comprehensive evaluation of vertigo. - Discontinue Advil PM due to renal risks; consider Tylenol or Benadryl if needed for sleep. - Prescribe Lisinopril in combination with current antihypertensive regimen to enhance blood pressure control. - Initiate a course of appropriate antibiotic therapy for the urinary tract infection. - Follow up with Urology regarding management of BPH and potentially related urinary symptoms. - Recommend sinus rinses and ongoing management for cough symptoms with [id number] medications if not improved. - Schedule follow-up for revised kidney function tests and continue monitoring anemia. During the consultation, I discussed with the patient the possible causes of his vertigo and the management options available, including referral to an ENT specialist. We reviewed the implications of prolonged OTC medication use with existing renal function, advising against Advil PM due to the potential risk of kidney damage and falls. For blood pressure management, I recommended adding Lisinopril and emphasized the importance of maintaining adequate hydration. We also covered treatment strategies for the urinary tract infection and highlighted the role of urology in managing his BPH. I advised non-pharmacological measures for improving sleep quality and the limitations of sedatives in older adults. The patient agreed to follow the plan outlined and will monitor any changes while awaiting further testing and specialist assessments. - Follow up with ENT as scheduled. - For sleep, substitute Advil PM with Tylenol PM or Benadryl for occasional use. - Take Lisinopril as prescribed, along with current blood pressure medications. - Complete the prescribed antibiotic course and increase fluid intake to aid recovery. - Use sinus rinses and OTC cough suppressants as needed for cough relief. - Monitor blood pressure routinely and report any significant changes or concerns. - Schedule the ultrasound assessment and urology consultation as discussed. - Maintain hydration and avoid NSAIDs to protect kidney function. - Sign up for the patient portal to facilitate communication and access to care. Orders: Orders Basic Metabolic Panel 2 Weeks I10 - Essential (primary) hypertension Referrals Urology Referral N39.0 - Urinary tract infection, site not specified Ear/Nose/Throat Referral H81.13 - Benign paroxysmal vertigo, bilateral Medications: New lisinopril 5 mg PO DAILY 90 tabs 1RF I10 - Essential (primary) hypertension amoxicillin 875 mg PO BID 14 tabs 0RF R09.81 - Nasal congestion Refilled hydrochlorothiazide 12.5 mg PO DAILY 90 tabs 1RF I10 - Essential (primary) hypertension Quality Reporting (2019) Depression/Bipolar (159/160/161/177) PHQ-9: Total score: 2 Coding Level of Care Code Medicare Subsequent (G0439) Diagnoses Medicare annual wellness visit, subsequent Z00.00 Hypercholesterolemia E78.00 Obstructive sleep apnea G47.33 Obesity (BMI 30-39.9) E66.9 UTI (urinary tract infection) N39.0 Primary hypertension I10 Hypertension type: primary hypertension Sinus congestion R09.81 Additional Codes PHQ-9 - 21602 - PHQ-9 Billing: Yes ([id number])
== END 2024-11-28 14:30 | disposition home or self-care (01) ==
PROVIDERS: PCP Internal Medicine; Visit Provider Internal Medicine
DX: Z00.00 Encounter for general adult medical examination without abnormal findings (principal); E78.00 Pure hypercholesterolemia, unspecified; G47.33 Obstructive sleep apnea (adult) (pediatric); E66.9 Obesity, unspecified; N39.0 Urinary tract infection, site not specified; I10 Essential (primary) hypertension; R09.81 Nasal congestion

== ENCOUNTER → 2024-11-28 13:29 | Outpatient (BNVA) | payer MEDICARE, SELFPAY | PROVIDERS: PCP Internal Medicine; Visit Provider Internal Medicine | DX: Z00.00 Encounter for general adult medical examination without abnormal findings (principal); I10 Essential (primary) hypertension; E78.00 Pure hypercholesterolemia, unspecified; G47.00 Insomnia, unspecified; G47.33 Obstructive sleep apnea (adult) (pediatric); E66.9 Obesity, unspecified; N39.0 Urinary tract infection, site not specified; R09.81 Nasal congestion; H81.13 Benign paroxysmal vertigo, bilateral | CPT/HCPCS: 96127 ==

== ENCOUNTER 2024-12-09 14:15 | Outpatient (REF) | payer MEDICARE, SELFPAY ==
--- NOTE | ~2024-12-09 | US_ITS ---
EXAMINATION: US KIDNEY BILATERAL HISTORY: N39.0 - Urinary tract infection, site not specified TECHNIQUE: Real-time grayscale ultrasound imaging of the kidneys was performed and images were reviewed. COMPARISON: Comparison is made with the prior examination dated 05/03/2024. FINDINGS: Right kidney: The right kidney measures 11.7 x 5.6 x 5.8 cm. Renal parenchymal echotexture and thickness are normal. Again seen is a lower pole cyst measuring 1.5 x 1.4 x 1.3 cm. There is no hydronephrosis or renal calculi. Left Kidney: The left kidney measures 12.6 x 5.0 x 5.2 cm. Renal parenchymal echotexture and thickness are normal. There are no masses. There is no hydronephrosis or renal calculi. US/US renal BI IMPRESSION: 1.5 cm right lower pole renal cyst. Otherwise unremarkable renal ultrasound. Electronically signed by: Chandra Issa MD 12/12/2024 12:13 PM JOSI
== END 2024-12-09 14:16 | disposition home or self-care (01) ==
LOC: HO.HMGCX 14:15
PROVIDERS: PCP Internal Medicine; Visit Provider Internal Medicine
DX: N39.0 Urinary tract infection, site not specified (principal)
CPT/HCPCS: 76775

== ENCOUNTER → 2024-12-09 14:17 | Outpatient (BNV) | payer MEDICARE, SELFPAY | PROVIDERS: PCP Internal Medicine; Visit Provider Radiology Diagnostic Radiology | DX: N28.1 Cyst of kidney, acquired (principal) | CPT/HCPCS: 76775 ==

== ENCOUNTER → 2025-01-10 14:51 | Outpatient (BNVA) | payer MEDICARE, SELFPAY | PROVIDERS: PCP Internal Medicine; Visit Provider Internal Medicine | DX: E66.9 Obesity, unspecified (principal); G47.33 Obstructive sleep apnea (adult) (pediatric); E78.00 Pure hypercholesterolemia, unspecified; R09.81 Nasal congestion; I10 Essential (primary) hypertension; B35.6 Tinea cruris; L85.3 Xerosis cutis | CPT/HCPCS: 99212 ==

== ENCOUNTER 2025-01-10 15:12 | Outpatient (AMB) | payer MEDICARE, SELFPAY ==
--- NOTE | 2025-01-10 15:04 | MHC.PC.OV ---
Vital Signs 01/10/25 15:05 Height 5 ft 9 in Weight 239 lb BMI 35.3 BP 138/82 Blood Pressure Location Lt brachial Position Sitting Pulse 93 Pulse Source Pulse Oximeter Pulse Oximetry (%) 95 Oxygen Delivery Method Room Air Intake Visit Reasons: BPPV Plug Maker Required: No Accompanied by: Self / Same As Patient Allergies No Known Allergies Allergy (Verified 01/10/25 15:06) Tobacco use date assessed: 01/10/25 Fall risk assessment: No Falls in past year Last assessed Fall Risk: 01/10/25 Dental Screening Dental Screen Date: 01/10/25 Did you have a dental visit in the last 12 months?: Yes Did you have a dental problem in the last 6 months where you did not have access to dental care?: No Was dental information given to patient?: Patient has dentist HPI BPPV HPI Details The patient is a 79-year-old male presenting for a follow-up regarding obstructive sleep apnea and severe hypertension. The patient has been using a CPAP machine for treatment of obstructive sleep apnea for over four hours each night, which he finds beneficial. The severe hypertension has been managed with hydrochlorothiazide 12.5 mg once daily and lisinopril 5 mg once daily. The patient has a known renal cyst measuring 1.5 cm on the right lower pole, identified during a renal ultrasound due to a history of UTIs. The most recent blood work was performed on November 25. There are no new findings since that time. - CPAP usage exceeding 4 hours per night for obstructive sleep apnea management. - Diet and exercise emphasized as ongoing components of health maintenance. - Flonase used for allergic rhinitis symptoms. - Blood pressure management with hydrochlorothiazide and lisinopril. - Cholesterol management plan in place with LDL goal of less than 130 mg/dL and triglycerides less than 150 mg/dL. Patient complains of 2 months of cough/cold and discussed with the patient that this is not infectious if it is 2 months already. Discussed the possibility of asthma type of problem and allergy problem. [facility] Medical History Left knee pain Cough Blood pressure elevated without history of HTN Dizziness Allergic rhinitis Hypercholesterolemia Lumbar degenerative disc disease Erectile dysfunction Cervical radiculopathy Osteoarthritis Sacroiliitis, not elsewhere classified Urinary retention Obstructive sleep apnea Obesity (BMI 30-39.9) Surgical History H/O arthroscopy of shoulder Family History Father Cancer Stroke Mother No problems noted. Son No problems noted. Son No problems noted. Social History Housing: House Alcohol intake: current Alcohol intake frequency: does not drink Comment: 2 nights a week 1 drink Patient Tobacco Use Status: Former Tobacco user Tobacco use type: Cigar Years Smoked: stopped 2004, 1-2 cigars a week e-Cigarette/Vaping Use: Never Used Second Hand Smoke Exposure: No service: Yes ([employer]) Current occupational status: retired Current occupation: rt handed Cognitive needs: No Hearing needs: Yes (hearing aides) Vision needs: Yes (glasses) Questionnaire PHQ-9 Over the last 2 weeks, how often have you been bothered by any of the following problems? 1. Little interest or pleasure in doing things: not at all 2. Feeling down, depressed, or hopeless: not at all 3. Trouble falling or staying asleep, or sleeping too much: not at all 4. Feeling tired or having little energy: not at all 5. Poor appetite or overeating: not at all 6. Feeling bad about yourself - or that you are a failure or have let yourself or your family down: not at all 7. Trouble concentrating on things, such as reading the newspaper or watching television: not at all 8. Moving or speaking so slowly that other people could have noticed. Or the opposite - being so fidgety or restless that you have been moving around a lot more than usual: not at all 9. Thoughts that you would be better off or of hurting yourself in some way: not at all Total score: 0 Depression Screening Interpretation: Negative Depression Screening Done: Yes Source: Developed by Drs. Chandra Parr, Eneida Jenkins, Devin Montgomery and colleagues, with an educational arpan from [employer]. Thrive Questionnaire Date Thrive assessed: 01/10/25 I am a: Patient What is your living situation today?: I have a steady place to live Within the past 12 months, did the food you bought not last and you didn't have the money to get more?: Never true Within the past 12 months, did you worry whether your food would run out before you got money to buy more?: Never true Do you have trouble paying for medicines?: No Do you have trouble getting transportation to medical appointments?: No Do you have trouble paying your heating and electricity bill?: No Do you have trouble taking care of your child, family member or friend?: No Do you have trouble with day-to-day activities such as bathing, preparing meals, shopping, managing finances, etc.?: No Are you currently unemployed and looking for a job?: No Are you interested in more education?: No Please select the resources that you would like help with: None Currently or been in a relationship where the following occur: No concerns reported THRIVE Score: 0 AUDIT C Alcohol Use Questionnaire (AUDIT-C) 1. How often do you have a drink containing alcohol?: 2-4 times a month 2. How many drinks containing alcohol do you have on a typical day when you are drinking?: 1 or 2 3. How often do you have six or more drinks on one occasion?: Never Total Score: 2 Score Reviewed/Action Taken: No STACY-7 AMB Questionnaire STACY-7 Date STACY - 7 assessed: 01/10/25 Feeling nervous, anxious, or on edge: 0 = Not at all Not being able to stop or control worryin = Not at all Worrying too much about different things: 0 = Not at all Trouble relaxin = Not at all Being so restless that it is hard to sit still: 0 = Not at all Becoming easily annoyed or irritable: 0 = Not at all Feeling afraid as if something awful might happen: 0 = Not at all Total STACY-7 score (0-4 normal; 5-9 mild; 10-14 moderate; 15-21 severe): 0 Source: Developed by Drs. Chandra Parr, Eneida Jenkins, Devin Montgomery and colleagues, with an educational arpan from [employer]. Physical exam (Primary Care) Vital Signs: Last Vital Signs Pulse 93 01/10/25 15:05 BP 138/82 01/10/25 15:05 Pulse Ox 95 01/10/25 15:05 Oxygen Delivery Method Room Air 01/10/25 15:05 BMI result Body Mass Index 35.3 Tobacco/Smoking Status: Tobacco use Status Tobacco use date assessed 09/26/24 12/05/24 13:17 Patient Tobacco Use Status Former Tobacco user 12/05/24 13:17 Tobacco use type Cigar 12/05/24 13:17 e-Cigarette/Vaping Use Never Used 12/05/24 13:17 Depression Screening Interpretation: Negative Thrive Assessment: Date of Thrive Assessment Date Thrive assessed 09/26/24 12/05/24 13:17 Currently or been in a relationship where the following occur: No concerns reported Const General: alert; No acute distress Eyes Conjunctivae: conjunctivae normal Resp Auscultation: clear to auscultation bilaterally Cardio Rate: regular rate Rhythm: regular rhythm GI Inspection: Yes normal to inspection Skin Full body images: 1. Bilateral patches of mildly hyperpigmented dry skin areas Extrem General: Yes normal to inspection and No edema Coding Level of Care Code Est Pt Level 4 (17714) Diagnoses Obesity (BMI 30-39.9) E66.9 Obstructive sleep apnea G47.33 Hypercholesterolemia E78.00 Nasal congestion R09.81 Primary hypertension I10 Hypertension type: primary hypertension Tinea cruris B35.6 Dry skin dermatitis L85.3 Assessment & Plan Assessment & Plan (1) Obesity (BMI 30-39.9): Code(s): E66.9 - Obesity, unspecified Category: Medical Plan: Diet and exercise (2) Obstructive sleep apnea: Comment: Severe Code(s): G47.33 - Obstructive sleep apnea (adult) (pediatric) Category: Medical Plan: Patient uses the CPAP only when lying in bed. Most often on the recliner did not see any reason to use the CPAP. But did discuss about importance of CPAP treatment. (3) Hypercholesterolemia: Code(s): E78.00 - Pure hypercholesterolemia, unspecified Category: Medical Plan: Avoid fried foods, chicken skin, eggs, butter margarine, pastries and meat. Be it pork or beef they have a lot of cholesterol LDL goal of less than 130 and triglyceride of less than 150 (4) Nasal congestion: Code(s): R09.81 - Nasal congestion Category: Medical Plan: Patient is prescribed Flonase nasal spray to help the congestion (5) Hypertension: Code(s): I10 - Essential (primary) hypertension Category: Medical Qualifiers: Hypertension type: primary hypertension Qualified Code(s): I10 - Essential (primary) hypertension Plan: Continue with blood pressure medication. Decrease salt intake and exercise on hydrochlorothiazide 12.5 mg once a day lisinopril 5 mg once a day (6) Tinea cruris: Code(s): B35.6 - Tinea cruris Category: Medical Plan: Antifungal ketoconazole sent in (7) Dry skin dermatitis: Code(s): L85.3 - Xerosis cutis Category: Medical Plan: discussed about hydrating therapy like aquaphor. Plan 1. 5 mg once daily and lisinopril 5 mg once daily: - Monitor and manage cholesterol levels with a goal of LDL less than 130 mg/dL and triglycerides less than 150 mg/dL. - Continue use of Flonase for allergic rhinitis symptoms. - During the consultation, I discussed the patient's current management for obstructive sleep apnea, indicating the benefits of continued CPAP use, which he finds effective. I reviewed his current antihypertensive regimen and emphasized the importance of consistent medication adherence. I advised the patient on maintaining his current lifestyle modifications, including dietary adjustments and regular physical activity. The patient was informed of the existing renal cyst noted in previous imaging, which at this time does not require intervention beyond monitoring. - Continue using the CPAP machine for at least four hours each night. - Take prescribed blood pressure medications as directed daily. - Follow the recommended diet and exercise plan to assist with overall health maintenance. - Use Flonase as needed for allergy symptoms. - Keep regular appointments with healthcare providers and report any new symptoms or concerns. Medications: New miconazole nitrate 2% (Zeasorb AF) 1 appl topical BID 85 grams 8RF B35.6 - Tinea cruris ketoconazole 2% 1 appl topical BID 60 grams 1RF B35.6 - Tinea cruris
[2025-01-10 15:05] VITALS: BP 138/82; PULSE 93; O2SAT 95; BMI 35.3
--- OUTSIDE RECORDS SUMMARY | 2025-01-10 18:35 | XMS_ITS | Continuity of Care Document ---
Author Organization [facility] Address [address] [place] [address] Phone Care Team Providers Care Senior Ios Software Engineer Name Role Phone Paramjit Winkler MD Unavailable Unavailable Advance Directives Directive Yes / No Effective Date File Name No Information Encounters Encounter Description Practice Location Reason(s) For Visit Diagnoses Date Provider Providers Copied on Encounter [facility], [address], [place], [id number], tel:[phone] No Information Cathi Yusuf. [address], [place], [id number], . tel:[phone] Family History Family Member Type Diagnosis Age At Onset No Information Payers Payer name Insurance type Covered alliance party ID Authoriza tion(s) No Information Social [...]
--- OUTSIDE RECORDS SUMMARY | 2025-01-10 18:59 | XMS_ITS | Continuity of Care Document ---
Author Organization [facility] Address [address] [place] [address] Phone Care Team Providers Care Gallery Host Name Role Phone Paramjit Winkler MD Unavailable Unavailable Advance Directives Directive Yes / No Effective Date File Name No Information Encounters Encounter Description Practice Location Reason(s) For Visit Diagnoses Date Provider Providers Copied on Encounter [facility], [address] [place], [place], [id number], tel:[phone] No Information Cathi Yusuf. [address] [place], [place], [id number], . tel:[phone] Family History Family Member Type Diagnosis Age At Onset No Information Payers Payer name Insurance type Covered republican ID Authoriza tion(s) No Information Social History [...]
== END 2025-01-10 15:53 | disposition home or self-care (01) ==
PROVIDERS: PCP Internal Medicine; Visit Provider Internal Medicine
DX: E78.00 Pure hypercholesterolemia, unspecified (principal); E66.9 Obesity, unspecified; Z68.35 Body mass index [BMI] 35.0-35.9, adult; G47.33 Obstructive sleep apnea (adult) (pediatric); R09.81 Nasal congestion; I10 Essential (primary) hypertension; B35.6 Tinea cruris; L85.3 Xerosis cutis

== ENCOUNTER 2025-02-27 13:15 | Outpatient (AMB) | payer MEDICARE, SELFPAY ==
[2025-02-27 13:20] VITALS: BP 132/68; PULSE 106; TEMP 36.6; O2SAT 95; BMI 35.2
--- NOTE | 2025-02-27 13:20 | MHC.PC.OV ---
Vital Signs 02/27/25 13:20 Height 5 ft 9 in Weight 238 lb 4 oz BMI 35.2 BP 132/68 Blood Pressure Location Lt brachial Position Sitting Pulse 106 H Pulse Source Pulse Oximeter Temp 97.8 F Temp Source Temporal Artery Scan Pulse Oximetry (%) 95 Oxygen Delivery Method Room Air Intake Visit Reasons: Hypertension Allergies No Known Allergies Allergy (Verified 02/27/25 13:24) Tobacco use date assessed: 01/10/25 Fall risk assessment: No Falls in past year Last assessed Fall Risk: 02/27/25 Dental Screening Dental Screen Date: 01/10/25 Did you have a dental visit in the last 12 months?: Yes Did you have a dental problem in the last 6 months where you did not have access to dental care?: No Was dental information given to patient?: Patient has dentist [facility], [facility] Medical History Left knee pain Cough Blood pressure elevated without history of HTN Dizziness Allergic rhinitis Hypercholesterolemia Lumbar degenerative disc disease Erectile dysfunction Cervical radiculopathy Osteoarthritis Sacroiliitis, not elsewhere classified Urinary retention Obstructive sleep apnea Obesity (BMI 30-39.9) Surgical History H/O arthroscopy of shoulder Family History Father Cancer Stroke Mother No problems noted. Son No problems noted. Son No problems noted. Social History Housing: House Alcohol intake: current Alcohol intake frequency: does not drink Comment: 2 nights a week 1 drink Patient Tobacco Use Status: Former Tobacco user Tobacco use type: Cigar Years Smoked: stopped 2004, 1-2 cigars a week e-Cigarette/Vaping Use: Never Used Second Hand Smoke Exposure: No service: Yes ([employer]) Current occupational status: retired Current occupation: rt handed Cognitive needs: No Hearing needs: Yes (hearing aides) Vision needs: Yes (glasses) Questionnaire PHQ-9 Over the last 2 weeks, how often have you been bothered by any of the following problems? 1. Little interest or pleasure in doing things: not at all 2. Feeling down, depressed, or hopeless: not at all 3. Trouble falling or staying asleep, or sleeping too much: not at all 4. Feeling tired or having little energy: not at all 5. Poor appetite or overeating: not at all 6. Feeling bad about yourself - or that you are a failure or have let yourself or your family down: not at all 7. Trouble concentrating on things, such as reading the newspaper or watching television: not at all 8. Moving or speaking so slowly that other people could have noticed. Or the opposite - being so fidgety or restless that you have been moving around a lot more than usual: not at all 9. Thoughts that you would be better off or of hurting yourself in some way: not at all Total score: 0 Depression Screening Interpretation: Negative Depression Screening Done: Yes Source: Developed by Drs. Chandra Parr, Eneida Jenkins, Devin Montgomery and colleagues, with an educational arpan from [employer]. Thrive Questionnaire Date Thrive assessed: 01/10/25 I am a: Patient What is your living situation today?: I have a steady place to live Within the past 12 months, did the food you bought not last and you didn't have the money to get more?: Never true Within the past 12 months, did you worry whether your food would run out before you got money to buy more?: Never true Do you have trouble paying for medicines?: No Do you have trouble getting transportation to medical appointments?: No Do you have trouble paying your heating and electricity bill?: No Do you have trouble taking care of your child, family member or friend?: No Do you have trouble with day-to-day activities such as bathing, preparing meals, shopping, managing finances, etc.?: No Are you currently unemployed and looking for a job?: No Are you interested in more education?: No Please select the resources that you would like help with: None Currently or been in a relationship where the following occur: No concerns reported THRIVE Score: 0 AUDIT C Alcohol Use Questionnaire (AUDIT-C) 1. How often do you have a drink containing alcohol?: 2-4 times a month 2. How many drinks containing alcohol do you have on a typical day when you are drinking?: 1 or 2 3. How often do you have six or more drinks on one occasion?: Never Total Score: 2 Score Reviewed/Action Taken: No STACY-7 AMB Questionnaire STACY-7 Date STACY - 7 assessed: 01/10/25 Feeling nervous, anxious, or on edge: 0 = Not at all Not being able to stop or control worryin = Not at all Worrying too much about different things: 0 = Not at all Trouble relaxin = Not at all Being so restless that it is hard to sit still: 0 = Not at all Becoming easily annoyed or irritable: 0 = Not at all Feeling afraid as if something awful might happen: 0 = Not at all Total STACY-7 score (0-4 normal; 5-9 mild; 10-14 moderate; 15-21 severe): 0 Source: Developed by Drs. Chandra Parr, Eneida Jenkins, Devin Montgomery and colleagues, with an educational arpan from [employer]. Review of Systems Const Reports as per HPI Physical exam (Primary Care) Vital Signs: Last Vital Signs Temp 97.8 F 02/27/25 13:20 Pulse 106 H 02/27/25 13:20 BP 132/68 02/27/25 13:20 Pulse Ox 95 02/27/25 13:20 Oxygen Delivery Method Room Air 02/27/25 13:20 BMI result Body Mass Index 35.2 Tobacco/Smoking Status: Tobacco use Status Tobacco use date assessed 01/10/25 02/27/25 13:25 Patient Tobacco Use Status Former Tobacco user 02/27/25 13:25 Tobacco use type Cigar 02/27/25 13:25 e-Cigarette/Vaping Use Never Used 02/27/25 13:25 PHQ-9: PHQ-9 Score PHQ-9: Total score 0 02/27/25 13:49 Depression Screening Interpretation: Negative Thrive Assessment: Date of Thrive Assessment Date Thrive assessed 01/10/25 02/27/25 13:25 Currently or been in a relationship where the following occur: No concerns reported Coding Level of Care Code Est Pt Level 4 (12545) Diagnoses Primary hypertension I10 Hypertension type: primary hypertension Hypercholesterolemia E78.00 Obstructive sleep apnea G47.33 Obesity (BMI 30-39.9) E66.9 Assessment & Plan Assessment & Plan (1) Hypertension: Code(s): I10 - Essential (primary) hypertension Category: Medical Qualifiers: Hypertension type: primary hypertension Qualified Code(s): I10 - Essential (primary) hypertension Plan: Continue with blood pressure medication. Decrease salt intake and exercise on lisinopril and hydrochlorothiazide (2) Hypercholesterolemia: Code(s): E78.00 - Pure hypercholesterolemia, unspecified Category: Medical Plan: Avoid fried foods, chicken skin, eggs, butter margarine, pastries and meat. Be it pork or beef they have a lot of cholesterol (3) Obstructive sleep apnea: Comment: Severe Code(s): G47.33 - Obstructive sleep apnea (adult) (pediatric) Category: Medical Plan: Continue to use the CPAP more than 4 hours a night and benefits from the (4) Obesity (BMI 30-39.9): Code(s): E66.9 - Obesity, unspecified Category: Medical Plan: Diet and exercise Plan History of Present Illness The patient is a 79-year-old male presenting with arthritis-related hand pain. The pain disrupts sleep and is worse at night, prompting the use of Tylenol. Despite this, some nights remain restless. He is familiar with a CPAP for sleep apnea, which improves his condition. Other chronic conditions include lumbar degenerative disc disease, hypercholesterolemia managed with oral medication, and hypertension. Past results indicated mild anemia and slightly high sodium suggesting dehydration. Electrolytes, liver function, and glucose were within normal limits. He had a colon test in 2018. Evaluation for anemia will continue with future testing. Health Maintenance - CPAP usage recommended for over 4 hours nightly for obstructive sleep apnea. - Sodium intake reduction and increased fluid intake due to high sodium levels and use of hydrochlorothiazide. - Continued adherence to cholesterol management and blood pressure medications, lisinopril, and hydrochlorothiazide. - Last colonoscopy conducted in 2018. - Shingrix vaccine completed recently. - Dietary recommendations including intake of regular food and avoidance of unnecessary supplements. Social History - Frequent Facebook usage noted; patient engages heavily in social media. - Nutritional intake includes healthy foods like chicken and fish, with a diet rich in greens and occasional red meat. - Patient maintains an active lifestyle, particularly enjoys cooking. Review of Systems - Musculoskeletal: Reports pain in hands, particularly impacting the ability to close hands fully. - Neurologic: Reports disturbances in sleep due to pain. - General: Denies other acute symptoms or complaints. Physical Exam Results - Labs: November 25 blood work indicated mild anemia, creatinine 1.24, GFR of 56, stable electrolytes but slightly elevated sodium, normal glucose, normal liver function tests, and LDL of 112. Plan Current management for obstructive sleep apnea is continued with nightly CPAP usage over 4 hours. Hypertension managed with lisinopril and hydrochlorothiazide, with emphasis on adequate fluid intake due to elevated sodium levels. Mild anemia will be monitored with future tests. Arthritis pain to be managed with glucosamine chondroitin trial. Health maintenance includes adherence to medications, lifestyle, and diet modifications, with ongoing evaluation for chronic conditions. Patient was informed and verbally consented to the use of an ambient scribe for clinic note documentation during this visit. Discussion Notes I discussed with the patient the management of his arthritis pain and recommended trying glucosamine chondroitin, explaining the rationale behind its potential benefits. For hypertension, we reviewed the importance of adequate hydration due to diuretic use contributing to elevated sodium levels. I explained the findings from his recent lab work including mild anemia, which requires ongoing monitoring. Additionally, I reaffirmed the continuation of sleep apnea management via CPAP machine usage as beneficial. We reviewed his CPAP compliance, and lifestyle choices, and confirmed his understanding of ongoing treatment plans, encouraging dietary adjustments and hydration to support overall health management. Patient Instructions - Use CPAP machine for more than 4 hours each night. - Increase water intake to two 32-ounce bottles daily. - Continue taking lisinopril and hydrochlorothiazide as prescribed. - Consider glucosamine chondroitin supplement trial for one month. - Monitor symptoms and report any changes. - Schedule and complete follow-up blood work prior to the next appointment. - Maintain a healthy diet with regular meals and avoid unnecessary supplements. - Return for immediate care if there are any acute concerns or significant changes in health. Orders: Orders Lipid Panel 6 Months E78.00 - Pure hypercholesterolemia, unspecified, I10 - Essential (primary) hypertension Complete Blood Count Auto Diff 6 Months I10 - Essential (primary) hypertension Comprehensive Met. Panel 6 Months I10 - Essential (primary) hypertension Free T4 (Free Thyroxine) 6 Months I10 - Essential (primary) hypertension Thyroid Stimulating Hormone 6 Months I10 - Essential (primary) hypertension Ferritin 6 Months I10 - Essential (primary) hypertension IRON PROFILE 6 Months I10 - Essential (primary) hypertension Vitamin B12 and Folate 6 Months I10 - Essential (primary) hypertension Hemoglobin A1c 6 Months I10 - Essential (primary) hypertension UA CC w/rflx Micro + Cult 6 Months I10 - Essential (primary) hypertension, R30.0 - Dysuria
--- OUTSIDE RECORDS SUMMARY | 2025-02-27 15:12 | XMS_ITS | Continuity of Care Document ---
Author Organization [facility] Address [address] [place] [address] Phone Care Team Providers Care Weaver Hand Name Role Phone Paramjit Winkler MD Unavailable Unavailable Advance Directives Directive Yes / No Effective Date File Name No Information Encounters Encounter Description Practice Location Reason(s) For Visit Diagnoses Date Provider Providers Copied on Encounter [facility], [address] [place], [place], [id number], tel:[phone] No Information Cathi Yusuf. [address], [place], [id number], . tel:[phone] Family History Family Member Type Diagnosis Age [...]
== END 2025-02-27 14:33 | disposition home or self-care (01) ==
LOC: HO.HMCH 13:15
PROVIDERS: PCP Internal Medicine; Visit Provider Internal Medicine
DX: I10 Essential (primary) hypertension (principal); E78.00 Pure hypercholesterolemia, unspecified; E66.9 Obesity, unspecified; Z68.35 Body mass index [BMI] 35.0-35.9, adult; G47.33 Obstructive sleep apnea (adult) (pediatric)

== ENCOUNTER → 2025-02-27 13:15 | Outpatient (BNVA) | payer MEDICARE, SELFPAY | PROVIDERS: PCP Internal Medicine; Visit Provider Internal Medicine | DX: I10 Essential (primary) hypertension (principal); Z87.891 Personal history of nicotine dependence; E78.00 Pure hypercholesterolemia, unspecified; G47.33 Obstructive sleep apnea (adult) (pediatric); E66.9 Obesity, unspecified; Z68.35 Body mass index [BMI] 35.0-35.9, adult | CPT/HCPCS: 96127; 99212 ==

== ENCOUNTER 2025-09-21 13:07 | Outpatient (REF) | payer MEDICARE, SELFPAY ==
[2025-09-21 16:07] LABS: Hematocrit 42.1 % (42.0-52.0); Hemoglobin 14.3 g/dl (14.0-18.0); Mean Corpuscular HGB Conc 34.0 g/dl (31.0-36.0); Mean Corpuscular Hemoglobin 30.3 pg (27.0-33.0); Mean Corpuscular Volume 89.2 fL (80.0-98.0); NRBC Abs Auto 0.000 X10*3/uL (0.0-0.012); NRBC Pct Auto 0.0 /100WBC (0.0-0.2); Platelet Count 193 X10*3/uL (160-400); Red Blood Count 4.72 X10*6/uL (4.60-5.80); White Blood Count 7.6 X10*3/uL (4.8-10.8)
[2025-09-21 16:41] LABS: Anion Gap 12 (12-20); Blood Urea Nitrogen 14 mg/dL (9-16); Calcium 9.7 mg/dL (8.4-10.2); Carbon Dioxide 30 mmol/L (22-29); Chloride 105 mmol/L (96-108); Estimated Glomerular Filt Rate > 60; Potassium 4.6 mmol/L (3.3-5.1); Sodium 142 mmol/L (135-145)
== END 2025-09-21 13:08 | disposition home or self-care (01) ==
LOC: HO.LAB 13:07
PROVIDERS: PCP Internal Medicine; Visit Provider Internal Medicine
DX: Z01.818 Encounter for other preprocedural examination (principal); I10 Essential (primary) hypertension; G47.33 Obstructive sleep apnea (adult) (pediatric); E78.5 Hyperlipidemia, unspecified; H26.9 Unspecified cataract; Z23 Encounter for immunization
CPT/HCPCS: 36415; 80048; 85027; 90471; 90656; 93005; 99212

== ENCOUNTER 2025-10-17 10:32 | Outpatient (AMB) | payer MEDICARE, SELFPAY ==
[2025-10-17 10:34] VITALS: BP 130/70; PULSE 75; TEMP 36.7; O2SAT 95
--- NOTE | 2025-10-17 10:34 | MHC.PC.OV ---
Vital Signs 10/17/25 10:34 Height 5 ft 9 in Intake Visit Reasons: EP-lt ankle pain Allergies No Known Allergies Allergy (Verified 09/21/25 13:09) Tobacco use date assessed: 09/21/25 Dental Screening Dental Screen Date: 09/21/25 [facility] Medical History Left knee pain Cough Blood pressure elevated without history of HTN Dizziness Allergic rhinitis Hypercholesterolemia Lumbar degenerative disc disease Erectile dysfunction Cervical radiculopathy Osteoarthritis Sacroiliitis, not elsewhere classified Urinary retention Obstructive sleep apnea Obesity (BMI 30-39.9) Surgical History H/O arthroscopy of shoulder Family History Father Cancer Stroke Mother No problems noted. Son No problems noted. Son No problems noted. Social History Housing: House Alcohol intake: current Alcohol intake frequency: does not drink Comment: 2 nights a week 1 drink Patient Tobacco Use Status: Former Tobacco user Tobacco use type: Cigar Years Smoked: stopped 2004, 1-2 cigars a week e-Cigarette/Vaping Use: Never Used Second Hand Smoke Exposure: No service: Yes ([employer]) Current occupational status: retired Current occupation: rt handed Cognitive needs: No Hearing needs: Yes (hearing aides) Vision needs: Yes (glasses) Questionnaire Thrive Questionnaire Date Thrive assessed: 01/10/25 STACY-7 AMB Questionnaire STACY-7 Date STACY - 7 assessed: 01/10/25 Source: Developed by Drs. Chandra Parr, Eneida Jenkins, Devin Montgomery and colleagues, with an educational arpan from [employer]. Physical exam (Primary Care) Tobacco/Smoking Status: Tobacco use Status Tobacco use date assessed 09/21/25 09/21/25 13:16 Patient Tobacco Use Status Former Tobacco user 09/21/25 13:16 Tobacco use type Cigar 09/21/25 13:16 e-Cigarette/Vaping Use Never Used 09/21/25 13:16 Thrive Assessment: Date of Thrive Assessment Date Thrive assessed 01/10/25 09/21/25 13:16 Coding
--- NOTE | 2025-10-17 10:36 | MHC.OFFWIV ---
Intake Vital Signs 10/17/25 10:34 Height 5 ft 9 in BMI Reason not done Patient refused/unable BP 130/70 Blood Pressure Location Rt brachial Position Sitting Pulse 75 Pulse Source Pulse Oximeter Temp 98.0 F Temp Source Oral Pulse Oximetry (%) 95 Intake Visit Reasons: EP-lt ankle pain Patient Tobacco Use Status: Former Tobacco user Allergies No Known Allergies Allergy (Verified 10/17/25 10:36) Do you need a note to return to daycare/school/sports/work: No HPI HPI Comments History of Present Illness Details History of Present Illness - The patient is a 80-year-old individual presenting with left ankle pain that began approximately two weeks ago without any precipitating fall or injury. - The patient notes associated swelling and reports the pain has been progressively worsening. - The patient describes the pain as severe in certain areas of the ankle and reports it is exacerbated by standing for long periods. - The patient is on the medial side and it radiates in the foot. - The patient has attempted to manage the symptoms at home with a topical Advil roll-on and a heating pad at night. - He denies falls, calf pain, leg pain, knee pain, numbness, or tingling. Physical Exam General: Cooperative, healthy appearing, comfortable, no acute distress and well developed Orientation: Patient oriented x3 Respiratory: Normal respiratory effort and able to speak in complete sentences. Clear to auscultation bilaterally Cardiovascular: Regular rate and rhythm. Normal S1 and S2. Pulses are 2+ Skin: No rashes or lesions noted. No bruises noted. Neuro: Sensation is intact Extremities: Swelling noted to the left ankle. No deformity noted. FROM of the left ankle and digits. No TTP of the lateral malleolus, calcaneous, plantar fascia, or forefoot. TTP of medial malleolus. No calf tenderness noted. Ambulates with slow steady gait. Strength is 5/5 on the LE bilaterally. Patient was informed and verbally consented to the use of an ambient scribe for clinic note documentation during this visit. [facility] Medical History Left knee pain Cough Blood pressure elevated without history of HTN Dizziness Allergic rhinitis Hypercholesterolemia Lumbar degenerative disc disease Erectile dysfunction Cervical radiculopathy Osteoarthritis Sacroiliitis, not elsewhere classified Urinary retention Obstructive sleep apnea Obesity (BMI 30-39.9) Surgical History H/O arthroscopy of shoulder Family History Father Cancer Stroke Mother No problems noted. Son No problems noted. Son No problems noted. Social History Housing: House Alcohol intake: current Alcohol intake frequency: does not drink Comment: 2 nights a week 1 drink Patient Tobacco Use Status: Former Tobacco user Tobacco use type: Cigar Years Smoked: stopped 2004, 1-2 cigars a week e-Cigarette/Vaping Use: Never Used Second Hand Smoke Exposure: No service: Yes ([employer]) Current occupational status: retired Current occupation: rt handed Cognitive needs: No Hearing needs: Yes (hearing aides) Vision needs: Yes (glasses) Review of Systems Const All systems reviewed & are unremarkable except as noted in HPI and below Physical Exam Vital Signs: Last Vital Signs Temp 98.0 F 10/17/25 10:34 Pulse 75 10/17/25 10:34 BP 130/70 10/17/25 10:34 Pulse Ox 95 10/17/25 10:34 Results Reviewed Results Reviewed: will review the xray in the office Assessment & Plan Assessment & Plan (1) Left ankle pain: Code(s): M25.572 - Pain in left ankle and joints of left foot Qualifiers: Chronicity: acute Qualified Code(s): M25.572 - Pain in left ankle and joints of left foot Plan Most likely sprain vs arthritis vs tendonitis plan - The patient presents with ankle pain of two weeks duration, which is suspicious for arthritis or tendinitis. - An John wrap was applied to the ankle for support. - rest, ice, and elevation - An X-ray of the ankle has been ordered for further evaluation. - The results will called to the patient - will refer him to ortho - follow up with PCP Orders: Orders XR ankle LT min 3V Today M25.572 - Pain in left ankle and joints of left foot Referrals Orthopedics Referral M25.572 - Pain in left ankle and joints of left foot Coding Level of Care Code Est Pt Level 4 (58783) Diagnoses Acute left ankle pain M25.572 Chronicity: acute
== END 2025-10-17 11:09 | disposition home or self-care (01) ==
PROVIDERS: PCP Internal Medicine; Visit Provider Physician Assistant Medical
DX: M25.572 Pain in left ankle and joints of left foot (principal)

== ENCOUNTER 2025-10-17 10:32 | Outpatient (REF) | payer MEDICARE, SELFPAY ==
--- NOTE | ~2025-10-17 | XR_ITS ---
EXAMINATION: XR ANKLE, left CLINICAL INFORMATION: M25.572 - Pain in left ankle and joints of left foot COMPARISON: None available. TECHNIQUE: AP, lateral, and mortise views lower extremity joint, ankle. FINDINGS: Ankle mortise is congruent. There is no widening of the syndesmosis. Talar dome is intact. There is a very small plantar calcaneal enthesophyte(s). Mild/moderate atherosclerotic calcifications are visible. XR/XR ankle LT min 3V IMPRESSION: No acute bony abnormality. There is a very small plantar calcaneal spur. Atherosclerotic disease. Electronically signed by: Delbetr Stephens MD 10/17/2025 11:27 AM EST
== END 2025-10-17 10:33 | disposition home or self-care (01) ==
LOC: HO.HMGCX 10:32
PROVIDERS: PCP Internal Medicine; Visit Provider Physician Assistant Medical
DX: M25.572 Pain in left ankle and joints of left foot (principal)
CPT/HCPCS: 73610; 99212

== ENCOUNTER → 2025-10-17 10:54 | Outpatient (BNV) | payer MEDICARE, SELFPAY | PROVIDERS: PCP Internal Medicine; Visit Provider Radiology Diagnostic Radiology | DX: M77.32 Calcaneal spur, left foot (principal); I70.90 Unspecified atherosclerosis | CPT/HCPCS: 73610 ==